=== PATIENT | male | born 1960 | race Caucasian/White ===

== ENCOUNTER → 2020-08-05 10:40 | Outpatient (BNVA) | payer OTHER, SELFPAY | PROVIDERS: PCP Family Medicine; Visit Provider Internal Medicine | DX: I48.19 Other persistent atrial fibrillation (principal); Z51.81 Encounter for therapeutic drug level monitoring; Z79.01 Long term (current) use of anticoagulants | CPT/HCPCS: Q3014 ==

== ENCOUNTER → 2020-09-02 13:48 | Outpatient (BNVA) | payer OTHER, SELFPAY | PROVIDERS: PCP Family Medicine; Visit Provider Internal Medicine | DX: I48.19 Other persistent atrial fibrillation (principal); Z51.81 Encounter for therapeutic drug level monitoring; Z79.01 Long term (current) use of anticoagulants | CPT/HCPCS: 99211 ==

== ENCOUNTER → 2020-09-16 08:38 | Outpatient (BNVA) | payer OTHER, SELFPAY | PROVIDERS: Visit Provider Nurse Practitioner | DX: Z76.89 Persons encountering health services in other specified circumstances (principal) ==

== ENCOUNTER 2020-09-18 13:22 | Outpatient (REF) | payer OTHER, SELFPAY ==
[2020-09-21 15:07] LABS: Gliadin Deamidated IgA Ab 2 Units; Gliadin Deamidated IgG Ab 2 Units
== END 2020-09-18 13:23 | disposition home or self-care (01) ==
LOC: HO.LAB 13:22
PROVIDERS: PCP Family Medicine; Visit Provider Nurse Practitioner
DX: R19.7 Diarrhea, unspecified (principal)
CPT/HCPCS: 36415; 83516; 86140

== ENCOUNTER 2020-09-19 10:51 | Outpatient (REF) | payer OTHER, SELFPAY ==
[2020-09-19 12:42] LABS: Leukocytes Stool Qualitative NEGATIVE (NEGATIVE)
[2020-09-19 13:54] LABS: CDIFF Ag Negative (Negative); CDIFF Internal ctrl Dots and bkg OK (V); CDiff Toxin Negative (Negative)
== END 2020-09-19 10:52 | disposition home or self-care (01) ==
LOC: HO.LNP 10:51
PROVIDERS: Visit Provider Nurse Practitioner
DX: R19.7 Diarrhea, unspecified (principal)
CPT/HCPCS: 87045; 87046; 87324; 87449; 89055

== ENCOUNTER → 2020-09-30 08:35 | Outpatient (BNVA) | payer OTHER, SELFPAY | PROVIDERS: PCP Family Medicine; Visit Provider Internal Medicine | DX: Z76.89 Persons encountering health services in other specified circumstances (principal) ==

== ENCOUNTER → 2020-10-07 08:42 | Outpatient (BNVA) | payer OTHER, SELFPAY | PROVIDERS: PCP Family Medicine; Visit Provider Nurse Practitioner | DX: Z76.89 Persons encountering health services in other specified circumstances (principal) ==

== ENCOUNTER → 2020-10-15 08:05 | Outpatient (BNVA) | payer OTHER, SELFPAY | PROVIDERS: PCP Family Medicine; Visit Provider Internal Medicine | DX: Z76.89 Persons encountering health services in other specified circumstances (principal) ==

== ENCOUNTER 2020-10-20 09:25 | Outpatient (REF) | payer OTHER, SELFPAY ==
[2020-10-20 11:24] LABS: Creatinine Urine 254.44 mg/dL; Microalbum/Creatinine Ratio Ur 4.3 ug/mg cr
== END 2020-10-20 09:26 | disposition home or self-care (01) ==
LOC: HO.WFDLNP 09:25
PROVIDERS: Visit Provider Family Medicine
DX: I10 Essential (primary) hypertension (principal)
CPT/HCPCS: 82043

== ENCOUNTER 2020-10-20 09:40 | Outpatient (REF) | payer OTHER, SELFPAY ==
[2020-10-20 10:27] LABS: Basophils Absolute Auto 0.1 X10*3/uL (0.0-0.2); Basophils Percent Auto 0.9 % (0-2); Eosinophils Absolute Auto 0.4 X10*3/uL (0.0-0.4); Eosinophils Percent Auto 5.5 % (0-4); Imm Gran Abs Auto 0.01 X10*3/uL (0.00-0.03); Imm Gran Pct Auto 0.1 % (0.0-0.4); Lymphocytes Absolute Auto 1.7 X10*3/uL (1.2-4.9); Lymphocytes Percent Auto 23.1 % (20-40); MANUAL DIFF FLAG NO; Mean Corpuscular HGB Conc 31.8 g/dl (31.0-36.0); Mean Corpuscular Hemoglobin 30.6 pg (27.0-33.0); Mean Corpuscular Volume 96.1 fL (80-98); Mean Platelet Volume 9.5 fL (9.4-12.4); Monocytes Absolute Auto 0.7 X10*3/uL (0.1-1.2); Monocytes Percent Auto 8.9 % (2-11); Neutrophils Absolute Auto 4.6 X10*3/uL (2.0-8.3); Neutrophils Percent Auto 61.5 % (45-73); Platelet Count 239 X10*3/uL (160-400); Red Blood Count 4.58 X10*6/uL (4.60-5.80); Red Cell Distribution Width 12.9 % (11.0-16.0); White Blood Count 7.4 X10*3/uL (4.8-10.8)
[2020-10-20 11:09] LABS: Alanine Aminotransferase 26 U/L (0-40); Albumin Level 4.3 g/dL (3.5-5.0); Alkaline Phosphatase 64 U/L (39-117); Anion Gap 12 (12-20); Aspartate Amino Transferase 23 U/L (5-37); Bilirubin Total 0.3 mg/dL (0.0-1.0); Blood Urea Nitrogen 34 mg/dL (9-16); Calcium 9.3 mg/dL (8.4-10.2); Carbon Dioxide 27 mmol/L (22-29); Chloride 103 mmol/L (96-108); Cholesterol 157 mg/dL; Estimated Glomerular Filt Rate > 60; Glucose Fasting 99 mg/dL (60-99); HDL Cholesterol 46 mg/dL; LDL Cholesterol Calculated 89 mg/dl; Sodium 137 mmol/L (135-145); Total Protein 7.4 g/dL (6.5-8.0); Triglycerides 112 mg/dL
[2020-10-20 11:16] LABS: Estimated Average Glucose 114 mg/dL; Hemoglobin A1c % 5.6 %
[2020-10-20 11:31] LABS: Prostate Specific Antigen Scr 3.79 ng/mL (<0.05-4.0); TSH reflex Free T4 1.81 mIU/mL (0.32-4.0)
== END 2020-10-20 09:41 | disposition home or self-care (01) ==
LOC: HO.WFDLDS 09:40
PROVIDERS: Visit Provider Family Medicine
DX: Z00.00 Encounter for general adult medical examination without abnormal findings (principal); I10 Essential (primary) hypertension; R73.03 Prediabetes; D64.9 Anemia, unspecified; E78.00 Pure hypercholesterolemia, unspecified; Z12.5 Encounter for screening for malignant neoplasm of prostate
CPT/HCPCS: 36415; 80053; 80061; 82043; 83036; 84153; 84443; 85025

== ENCOUNTER → 2020-10-28 13:37 | Outpatient (BNVA) | payer OTHER, SELFPAY | PROVIDERS: PCP Family Medicine; Visit Provider Internal Medicine | DX: I48.19 Other persistent atrial fibrillation (principal); Z79.01 Long term (current) use of anticoagulants; Z51.81 Encounter for therapeutic drug level monitoring | CPT/HCPCS: Q3014 ==

== ENCOUNTER → 2020-11-11 12:44 | Outpatient (BNVA) | payer OTHER, SELFPAY | PROVIDERS: PCP Family Medicine; Visit Provider Internal Medicine | DX: I48.19 Other persistent atrial fibrillation (principal); Z51.81 Encounter for therapeutic drug level monitoring; Z79.01 Long term (current) use of anticoagulants | CPT/HCPCS: Q3014 ==

== ENCOUNTER → 2020-11-26 08:50 | Outpatient (BNVA) | payer OTHER, SELFPAY | PROVIDERS: PCP Family Medicine; Visit Provider Internal Medicine | DX: I48.19 Other persistent atrial fibrillation (principal); Z51.81 Encounter for therapeutic drug level monitoring; Z79.01 Long term (current) use of anticoagulants | CPT/HCPCS: Q3014 ==

== ENCOUNTER → 2020-12-09 14:39 | Outpatient (BNVA) | payer OTHER, SELFPAY | PROVIDERS: PCP Family Medicine; Visit Provider Internal Medicine | DX: I48.19 Other persistent atrial fibrillation (principal); Z51.81 Encounter for therapeutic drug level monitoring; Z79.01 Long term (current) use of anticoagulants | CPT/HCPCS: Q3014 ==

== ENCOUNTER → 2020-12-23 08:05 | Outpatient (BNVA) | payer OTHER, SELFPAY | PROVIDERS: PCP Family Medicine; Visit Provider Internal Medicine | DX: I48.19 Other persistent atrial fibrillation (principal); Z51.81 Encounter for therapeutic drug level monitoring; Z79.01 Long term (current) use of anticoagulants | CPT/HCPCS: 85610; 99211 ==

== ENCOUNTER → 2021-01-06 11:28 | Outpatient (BNVA) | payer OTHER, SELFPAY | PROVIDERS: PCP Family Medicine; Visit Provider Internal Medicine ==

== ENCOUNTER → 2021-01-20 10:42 | Outpatient (BNVA) | payer OTHER, SELFPAY | PROVIDERS: PCP Family Medicine; Visit Provider Internal Medicine | DX: Z79.01 Long term (current) use of anticoagulants (principal) ==

== ENCOUNTER → 2021-01-25 08:21 | Outpatient (BNVA) | payer OTHER, SELFPAY | PROVIDERS: PCP Family Medicine; Visit Provider Nurse Practitioner ==

== ENCOUNTER → 2021-02-04 09:59 | Outpatient (BNVA) | payer OTHER, SELFPAY | PROVIDERS: PCP Family Medicine; Visit Provider Internal Medicine | DX: I48.19 Other persistent atrial fibrillation (principal); Z79.01 Long term (current) use of anticoagulants; Z51.81 Encounter for therapeutic drug level monitoring | CPT/HCPCS: 99211 ==

== ENCOUNTER → 2021-02-15 13:49 | Outpatient (BNVA) | payer OTHER, SELFPAY | PROVIDERS: PCP Family Medicine; Visit Provider Nurse Practitioner ==

== ENCOUNTER → 2021-02-17 12:32 | Outpatient (BNVA) | payer OTHER, SELFPAY | PROVIDERS: PCP Family Medicine; Visit Provider Internal Medicine ==

== ENCOUNTER → 2021-03-04 10:54 | Outpatient (BNVA) | payer OTHER, SELFPAY | PROVIDERS: PCP Family Medicine; Visit Provider Internal Medicine ==

== ENCOUNTER → 2021-03-17 11:53 | Outpatient (BNVA) | payer OTHER, SELFPAY | PROVIDERS: PCP Family Medicine; Visit Provider Internal Medicine | DX: Z13.89 Encounter for screening for other disorder (principal) | CPT/HCPCS: Q3014 ==

== ENCOUNTER → 2021-03-25 10:47 | Outpatient (BNVA) | payer OTHER, SELFPAY | PROVIDERS: PCP Family Medicine; Visit Provider Internal Medicine | DX: I48.19 Other persistent atrial fibrillation (principal) | CPT/HCPCS: Q3014 ==

== ENCOUNTER → 2021-04-01 11:27 | Outpatient (BNVA) | payer OTHER, SELFPAY | PROVIDERS: PCP Family Medicine; Visit Provider Internal Medicine ==

== ENCOUNTER → 2021-04-15 12:00 | Outpatient (BNVA) | payer OTHER, SELFPAY | PROVIDERS: PCP Family Medicine; Visit Provider Internal Medicine ==

== ENCOUNTER 2021-04-20 09:06 | Outpatient (REF) | payer OTHER, SELFPAY ==
[2021-04-20 11:47] LABS: Prostate Specific Antigen Scr 3.51 ng/mL (<0.05-4.0)
== END 2021-04-20 09:07 | disposition home or self-care (01) ==
LOC: HO.WFDLDS 09:06
PROVIDERS: Visit Provider Family Medicine
DX: Z12.5 Encounter for screening for malignant neoplasm of prostate (principal)
CPT/HCPCS: 36415; 84153

== ENCOUNTER → 2021-05-12 13:56 | Outpatient (BNVA) | payer OTHER, SELFPAY | PROVIDERS: PCP Family Medicine; Visit Provider Internal Medicine ==

== ENCOUNTER → 2021-05-20 11:08 | Outpatient (BNVA) | payer OTHER, SELFPAY | PROVIDERS: Visit Provider Nurse Practitioner ==

== ENCOUNTER → 2021-05-27 12:02 | Outpatient (BNVA) | payer OTHER, SELFPAY | PROVIDERS: PCP Family Medicine; Visit Provider Internal Medicine | DX: I48.19 Other persistent atrial fibrillation (principal); Z79.01 Long term (current) use of anticoagulants; Z51.81 Encounter for therapeutic drug level monitoring | CPT/HCPCS: Q3014 ==

== ENCOUNTER → 2021-06-09 10:34 | Outpatient (BNVA) | payer OTHER, SELFPAY | PROVIDERS: PCP Family Medicine; Visit Provider Internal Medicine | DX: I48.19 Other persistent atrial fibrillation (principal) | CPT/HCPCS: Q3014 ==

== ENCOUNTER → 2021-06-17 10:17 | Outpatient (BNVA) | payer OTHER, SELFPAY | PROVIDERS: PCP Family Medicine; Visit Provider Internal Medicine ==

== ENCOUNTER → 2021-07-07 11:38 | Outpatient (BNVA) | payer OTHER, SELFPAY | PROVIDERS: PCP Family Medicine; Visit Provider Internal Medicine | DX: Z13.89 Encounter for screening for other disorder (principal) | CPT/HCPCS: Q3014 ==

== ENCOUNTER → 2021-07-14 17:03 | Outpatient (BNVA) | payer OTHER, SELFPAY | PROVIDERS: PCP Family Medicine; Visit Provider Internal Medicine | DX: I48.19 Other persistent atrial fibrillation (principal) | CPT/HCPCS: Q3014 ==

== ENCOUNTER → 2021-07-16 09:11 | Outpatient (BNVA) | payer OTHER, SELFPAY | PROVIDERS: PCP Family Medicine; Visit Provider Nurse Practitioner ==

== ENCOUNTER → 2021-07-22 12:00 | Outpatient (BNVA) | payer OTHER, SELFPAY | PROVIDERS: PCP Family Medicine; Visit Provider Internal Medicine ==

== ENCOUNTER → 2021-08-11 11:36 | Outpatient (BNVA) | payer OTHER, SELFPAY | PROVIDERS: PCP Family Medicine; Visit Provider Internal Medicine ==

== ENCOUNTER → 2021-08-26 10:59 | Outpatient (BNVA) | payer OTHER, SELFPAY | PROVIDERS: PCP Family Medicine; Visit Provider Internal Medicine ==

== ENCOUNTER → 2021-09-24 09:44 | Outpatient (BNVA) | payer OTHER, SELFPAY | PROVIDERS: PCP Family Medicine; Visit Provider Internal Medicine ==

== ENCOUNTER → 2021-10-07 13:40 | Outpatient (BNVA) | payer OTHER, SELFPAY | PROVIDERS: PCP Family Medicine; Visit Provider Internal Medicine | DX: I48.19 Other persistent atrial fibrillation (principal) | CPT/HCPCS: Q3014 ==

== ENCOUNTER → 2021-10-26 13:33 | Outpatient (BNVA) | payer OTHER, SELFPAY | PROVIDERS: PCP Family Medicine; Visit Provider Internal Medicine | DX: I48.19 Other persistent atrial fibrillation (principal); Z51.81 Encounter for therapeutic drug level monitoring; Z79.01 Long term (current) use of anticoagulants | CPT/HCPCS: Q3014 ==

== ENCOUNTER → 2021-11-03 11:01 | Outpatient (BNVA) | payer OTHER, SELFPAY | PROVIDERS: PCP Family Medicine; Visit Provider Internal Medicine | DX: I48.19 Other persistent atrial fibrillation (principal); Z51.81 Encounter for therapeutic drug level monitoring; Z79.01 Long term (current) use of anticoagulants | CPT/HCPCS: Q3014 ==

== ENCOUNTER → 2021-11-09 07:17 | Outpatient (BNVA) | payer OTHER, SELFPAY | PROVIDERS: PCP Family Medicine; Referring Provider Family Medicine; Visit Provider Nurse Practitioner ==

== ENCOUNTER → 2021-11-10 14:24 | Outpatient (BNVA) | payer OTHER, SELFPAY | PROVIDERS: PCP Family Medicine; Visit Provider Internal Medicine ==

== ENCOUNTER → 2021-11-25 13:44 | Outpatient (BNVA) | payer OTHER, SELFPAY | PROVIDERS: PCP Family Medicine; Visit Provider Internal Medicine ==

== ENCOUNTER → 2021-12-08 08:41 | Outpatient (BNVA) | payer OTHER, SELFPAY | PROVIDERS: PCP Family Medicine; Visit Provider Internal Medicine ==

== ENCOUNTER → 2021-12-21 08:28 | Outpatient (BNVA) | payer OTHER, SELFPAY | PROVIDERS: PCP Family Medicine; Visit Provider Nurse Practitioner ==

== ENCOUNTER → 2021-12-29 09:40 | Outpatient (BNVA) | payer OTHER, SELFPAY | PROVIDERS: PCP Family Medicine; Visit Provider Internal Medicine | DX: Z13.89 Encounter for screening for other disorder (principal) ==

== ENCOUNTER → 2022-01-13 11:50 | Outpatient (BNVA) | payer OTHER, SELFPAY | PROVIDERS: PCP Family Medicine; Visit Provider Internal Medicine | DX: Z13.89 Encounter for screening for other disorder (principal) ==

== ENCOUNTER → 2022-01-27 08:53 | Outpatient (BNVA) | payer OTHER, SELFPAY | PROVIDERS: PCP Family Medicine; Visit Provider Internal Medicine | DX: I48.19 Other persistent atrial fibrillation (principal); Z79.01 Long term (current) use of anticoagulants; Z51.81 Encounter for therapeutic drug level monitoring | CPT/HCPCS: 99211 ==

== ENCOUNTER → 2022-02-09 13:33 | Outpatient (BNVA) | payer OTHER, SELFPAY | PROVIDERS: PCP Family Medicine; Visit Provider Internal Medicine | DX: Z13.89 Encounter for screening for other disorder (principal) ==

== ENCOUNTER → 2022-02-24 14:14 | Outpatient (BNVA) | payer OTHER, SELFPAY | PROVIDERS: PCP Family Medicine; Visit Provider Internal Medicine | DX: Z13.89 Encounter for screening for other disorder (principal) ==

== ENCOUNTER → 2022-03-09 13:11 | Outpatient (BNVA) | payer OTHER, SELFPAY | PROVIDERS: PCP Family Medicine; Visit Provider Internal Medicine | DX: Z13.89 Encounter for screening for other disorder (principal) ==

== ENCOUNTER → 2022-03-24 08:44 | Outpatient (BNVA) | payer OTHER, SELFPAY | PROVIDERS: PCP Family Medicine; Visit Provider Internal Medicine | DX: I48.19 Other persistent atrial fibrillation (principal); Z79.01 Long term (current) use of anticoagulants; Z51.81 Encounter for therapeutic drug level monitoring | CPT/HCPCS: Q3014 ==

== ENCOUNTER → 2022-04-07 10:21 | Outpatient (BNVA) | payer OTHER, SELFPAY | PROVIDERS: PCP Family Medicine; Visit Provider Internal Medicine | DX: I48.19 Other persistent atrial fibrillation (principal); Z51.81 Encounter for therapeutic drug level monitoring; Z79.01 Long term (current) use of anticoagulants | CPT/HCPCS: Q3014 ==

== ENCOUNTER → 2022-05-05 12:51 | Outpatient (BNVA) | payer OTHER, SELFPAY | PROVIDERS: PCP Family Medicine; Visit Provider Internal Medicine | DX: I48.19 Other persistent atrial fibrillation (principal); Z79.01 Long term (current) use of anticoagulants; Z51.81 Encounter for therapeutic drug level monitoring | CPT/HCPCS: Q3014 ==

== ENCOUNTER → 2022-05-18 08:34 | Outpatient (BNVA) | payer OTHER, SELFPAY | PROVIDERS: PCP Family Medicine; Visit Provider Internal Medicine | DX: I48.19 Other persistent atrial fibrillation (principal); Z51.81 Encounter for therapeutic drug level monitoring; Z79.01 Long term (current) use of anticoagulants | CPT/HCPCS: 85610; 99211 ==

== ENCOUNTER → 2022-06-02 11:19 | Outpatient (BNVA) | payer OTHER, SELFPAY | PROVIDERS: PCP Family Medicine; Visit Provider Internal Medicine | DX: I48.19 Other persistent atrial fibrillation (principal); Z51.81 Encounter for therapeutic drug level monitoring; Z79.01 Long term (current) use of anticoagulants | CPT/HCPCS: Q3014 ==

== ENCOUNTER → 2022-06-22 15:24 | Outpatient (BNVA) | payer OTHER, SELFPAY | PROVIDERS: PCP Family Medicine; Visit Provider Internal Medicine | DX: I48.19 Other persistent atrial fibrillation (principal); Z51.81 Encounter for therapeutic drug level monitoring; Z79.01 Long term (current) use of anticoagulants | CPT/HCPCS: Q3014 ==

== ENCOUNTER → 2022-07-29 12:25 | Outpatient (BNVA) | payer OTHER, SELFPAY | PROVIDERS: PCP Family Medicine; Visit Provider Internal Medicine | DX: I48.19 Other persistent atrial fibrillation (principal); Z79.01 Long term (current) use of anticoagulants; Z51.81 Encounter for therapeutic drug level monitoring | CPT/HCPCS: Q3014 ==

== ENCOUNTER → 2022-08-10 10:13 | Outpatient (BNVA) | payer OTHER, SELFPAY | PROVIDERS: PCP Family Medicine; Visit Provider Internal Medicine | DX: I48.19 Other persistent atrial fibrillation (principal); Z51.81 Encounter for therapeutic drug level monitoring; Z79.01 Long term (current) use of anticoagulants | CPT/HCPCS: Q3014 ==

== ENCOUNTER 2022-09-29 09:27 | Outpatient (REF) | payer OTHER, SELFPAY ==
[2022-09-29 11:18] LABS: MANUAL DIFF FLAG NO
[2022-09-29 11:39] LABS: Appearance Urine Clear; Color Urine Yellow; Glucose Urine UA >=1000 mg/dL (Negative); Leukocyte Esterase Urine Negative (Negative); Nitrite Urine Negative (Negative); PH 5.5 (5.0-9.0); UMIC TRIGGER UA YES; Urine Blood Negative (Negative); Urine Ketones Negative (Negative); Urine Protein Negative (Neg-Trace)
[2022-09-29 11:41] LABS: Basophils Absolute Auto 0.1 X10*3/uL (0.0-0.2); Eosinophils Absolute Auto 0.3 X10*3/uL (0.0-0.4); Eosinophils Percent Auto 6.6 % (0-4); Hematocrit 42.2 % (42.0-52.0); Hemoglobin 13.2 g/dl (14.0-18.0); Imm Gran Abs Auto 0.01 X10*3/uL (0.00-0.03); Imm Gran Pct Auto 0.2 % (0.0-0.4); Lymphocytes Absolute Auto 1.5 X10*3/uL (1.2-4.9); Mean Corpuscular HGB Conc 31.3 g/dl (31.0-36.0); Mean Corpuscular Hemoglobin 29.7 pg (27.0-33.0); Mean Platelet Volume 10.2 fL (9.4-12.4); Monocytes Absolute Auto 0.6 X10*3/uL (0.1-1.2); Monocytes Percent Auto 11.3 % (2-11); Neutrophils Absolute Auto 2.6 x10*3/uL (2.0-8.3); Neutrophils Percent Auto 50.9 % (45-73); Platelet Count 254 X10*3/uL (160-400); Red Blood Count 4.44 X10*6/uL (4.60-5.80); Red Cell Distribution Width 13.3 % (11.0-16.0); White Blood Count 5.1 X10*3/uL (4.8-10.8)
[2022-09-29 11:47] LABS: Bacteria Urine None Seen (None Seen); Hyaline Casts Urine 0-2 /LPF (0-2); RBC Urine 0-2 /HPF (0-2); Squamous Epithelial Cell Urine 0-2 /HPF (0-2); WBC Urine 0-5 /HPF (0-5)
[2022-09-29 12:11] LABS: Creatinine Urine 83.56 mg/dL; Microalbumin Urine < 5.0 mg/L
[2022-09-29 12:13] LABS: Prostate Specific Antigen Scr 3.29 ng/mL (<0.05-4.0)
[2022-09-29 13:33] LABS: Alanine Aminotransferase 16 U/L (0-40); Alkaline Phosphatase 72 U/L (39-117); Anion Gap 10 (12-20); Aspartate Amino Transferase 19 U/L (5-37); Bilirubin Total 0.5 mg/dL (0.0-1.0); Blood Urea Nitrogen 23 mg/dL (9-16); Calcium 9.3 mg/dL (8.4-10.2); Carbon Dioxide 27 mmol/L (22-29); Chloride 106 mmol/L (96-108); Cholesterol 135 mg/dL; Estimated Glomerular Filt Rate > 60; Glucose Random 92 mg/dL (60-115); HDL Cholesterol 34 mg/dL; LDL Cholesterol Calculated 80 mg/dl; Potassium 5.1 mmol/L (3.3-5.1); Sodium 138 mmol/L (135-145); TSH reflex Free T4 2.21 uIU/mL (0.32-4.0); Triglycerides 107 mg/dL
[2022-10-01 09:43] LABS: LDL Cholesterol Direct 79 mg/dL (<100)
== END 2022-09-29 09:28 | disposition home or self-care (01) ==
LOC: HO.WFDLDS 09:27
PROVIDERS: Visit Provider Family Medicine
DX: Z00.00 Encounter for general adult medical examination without abnormal findings (principal); Z12.5 Encounter for screening for malignant neoplasm of prostate; I10 Essential (primary) hypertension; E78.00 Pure hypercholesterolemia, unspecified
CPT/HCPCS: 36415; 80053; 80061; 81001; 82043; 83721; 84153; 84443; 85025

== ENCOUNTER → 2022-10-05 14:43 | Outpatient (BNVA) | payer OTHER, SELFPAY | PROVIDERS: PCP Family Medicine; Visit Provider Internal Medicine | DX: Z79.01 Long term (current) use of anticoagulants (principal) ==

== ENCOUNTER → 2022-10-19 14:42 | Outpatient (BNVA) | payer OTHER, SELFPAY | PROVIDERS: PCP Family Medicine; Visit Provider Internal Medicine | DX: Z79.01 Long term (current) use of anticoagulants (principal) ==

== ENCOUNTER → 2022-11-02 12:35 | Outpatient (BNVA) | payer OTHER, SELFPAY | PROVIDERS: PCP Family Medicine; Visit Provider Internal Medicine | DX: Z79.01 Long term (current) use of anticoagulants (principal) ==

== ENCOUNTER → 2022-11-24 08:35 | Outpatient (BNVA) | payer OTHER, SELFPAY | PROVIDERS: PCP Family Medicine; Visit Provider Internal Medicine | DX: Z79.01 Long term (current) use of anticoagulants (principal) ==

== ENCOUNTER → 2022-12-07 15:23 | Outpatient (BNVA) | payer OTHER, SELFPAY | PROVIDERS: PCP Family Medicine; Visit Provider Internal Medicine | DX: Z79.01 Long term (current) use of anticoagulants (principal) ==

== ENCOUNTER → 2022-12-21 09:40 | Outpatient (BNVA) | payer OTHER, SELFPAY | PROVIDERS: PCP Family Medicine; Visit Provider Internal Medicine | DX: Z13.89 Encounter for screening for other disorder (principal) ==

== ENCOUNTER → 2023-01-04 08:17 | Outpatient (BNVA) | payer OTHER, SELFPAY | PROVIDERS: PCP Family Medicine; Visit Provider Nurse Practitioner | DX: Z13.89 Encounter for screening for other disorder (principal) ==

== ENCOUNTER → 2023-01-18 12:58 | Outpatient (BNVA) | payer OTHER, SELFPAY | PROVIDERS: PCP Family Medicine; Visit Provider Internal Medicine | DX: Z79.01 Long term (current) use of anticoagulants (principal) ==

== ENCOUNTER → 2023-02-01 09:26 | Outpatient (BNVA) | payer OTHER, SELFPAY | PROVIDERS: PCP Family Medicine; Visit Provider Internal Medicine | DX: Z79.01 Long term (current) use of anticoagulants (principal) ==

== ENCOUNTER → 2023-02-16 11:28 | Outpatient (BNVA) | payer OTHER, SELFPAY | PROVIDERS: PCP Family Medicine; Visit Provider Internal Medicine | DX: Z79.01 Long term (current) use of anticoagulants (principal) ==

== ENCOUNTER → 2023-03-02 08:38 | Outpatient (BNVA) | payer OTHER, SELFPAY | PROVIDERS: PCP Family Medicine; Visit Provider Internal Medicine | DX: Z79.01 Long term (current) use of anticoagulants (principal) ==

== ENCOUNTER → 2023-03-16 11:27 | Outpatient (BNVA) | payer OTHER, SELFPAY | PROVIDERS: PCP Family Medicine; Visit Provider Internal Medicine | DX: Z79.01 Long term (current) use of anticoagulants (principal) ==

== ENCOUNTER → 2023-03-30 09:39 | Outpatient (BNVA) | payer OTHER, SELFPAY | PROVIDERS: PCP Family Medicine; Visit Provider Internal Medicine | DX: Z79.01 Long term (current) use of anticoagulants (principal) ==

== ENCOUNTER → 2023-04-13 09:09 | Outpatient (BNVA) | payer OTHER, SELFPAY | PROVIDERS: PCP Family Medicine; Visit Provider Internal Medicine ==

== ENCOUNTER → 2023-04-27 10:24 | Outpatient (BNVA) | payer OTHER, SELFPAY | PROVIDERS: PCP Family Medicine; Visit Provider Internal Medicine ==

== ENCOUNTER → 2023-05-11 10:20 | Outpatient (BNVA) | payer OTHER, SELFPAY | PROVIDERS: PCP Family Medicine; Visit Provider Internal Medicine ==

== ENCOUNTER → 2023-05-26 10:41 | Outpatient (BNVA) | payer OTHER, SELFPAY | PROVIDERS: PCP Family Medicine; Visit Provider Internal Medicine ==

== ENCOUNTER → 2023-06-08 10:32 | Outpatient (BNVA) | payer OTHER, SELFPAY | PROVIDERS: PCP Family Medicine; Visit Provider Internal Medicine ==

== ENCOUNTER → 2023-06-29 11:09 | Outpatient (BNVA) | payer OTHER, SELFPAY | PROVIDERS: PCP Family Medicine; Visit Provider Internal Medicine ==

== ENCOUNTER 2023-07-06 07:59 | Outpatient (REF) | payer OTHER, SELFPAY | END 2023-07-06 08:00 | disposition home or self-care (01) | LOC: HO.LAB 07:59 | PROVIDERS: PCP Family Medicine; Visit Provider Nurse Practitioner | DX: R19.7 Diarrhea, unspecified (principal); K58.0 Irritable bowel syndrome with diarrhea; Z91.09 Other allergy status, other than to drugs and biological substances | CPT/HCPCS: 36415; 86003 ==

== ENCOUNTER 2023-07-06 07:59 | Outpatient (AMB) | payer OTHER, SELFPAY ==
[2023-07-06 08:05] VITALS: BP 93/56; PULSE 76; BMI 28.4
--- NOTE | 2023-07-06 08:05 | MHC.OFFVIS ---
Intake Vital Signs 07/06/23 08:05 Height 5 ft 8 in Weight 187 lb BMI 28.4 BP 93/56 L Blood Pressure Location Lt brachial Position Sitting Pulse 76 Intake Visit Reasons: 6 month fu Intake Note: Patient follow up for IBS with diarrhea. Patient denies any GI issues or concern. Ticket Maker Required: No Accompanied by: Self / Same As Patient Allergies No Known Allergies Allergy (Verified 07/06/23 08:05) HPI 6 month fu HPI Details Assessment & Plan (1) Irritable bowel syndrome with diarrhea: Comment: 2-colonoscopies and negative stool studies patient has failed dicyclomine cholestyramine Carafate and Imodium Code(s): K58.0 - Irritable bowel syndrome with diarrhea Plan: In general he is better controlled w/o any loose stools on his Viberzi 100 mg twice a day, but at times he has multiple daily BM's after eating not like when I used to go once in the morning. This is still prefer a bbl to when he had fecal urgency and multiple loose stools. He understands that these things are affected by how much water he drinks (he recently was ill and had some constipation which promote Education about skipping doses of Viberzi under the circumstances), will kind of food he eats such as spicy food, and this could even be impacted by things like anxiety through the neural hormonal interactions of the got with the rest of the body. For now, he is stable and taking 1 bentyl bid only. We discuss that we could consider RAST testing or pancreatic elastase, or adding a fiber supplement. He is aware that we can do these at any point but for now he opts for adding a fiber supplement such as Benefiber or Citrucel to see if he can even out his bowel movements better. I also point out that keeping a food diary can go long wait towards discovering what foods may cause his postprandial urgency. He likes Pintus!!! For now he is agreeable to six-month follow-up I will contact me sooner if he feels the need. Medications: Refilled eluxadoline (Viber zi) must admini ster with a meal/f ood 100 mg PO BID 180 tabs 3RF 90 days K58.0 - Irritable bowel syndrome wit h diarrhea TODAY'S VISIT Despite taking Viberzi bid faithfully he still has very frequent breakthrough diarrhea, very watery with near fecal incontinence that is very life limiting. He admits that he thought he was starting to get better before which is why he doing complain but now he sees that this is untenable and we need to address the situation further. Will stop bentyl and add creon 2 tabs bid and get RAST panel - as this is the only possible missing diagnostic. A prior what colonoscopy was normal visually in 2010 without polyps although they did not take biopsies, his last was in [address] Hou and a small polyp was removed in biopsies were obtained that were negative and he had a very small tubular adenoma. He denies taking NSAID/aspirin except for occasionally before playing golf but the prior biopsy seem to exclude collagenous/microscopic colitis. He had negative stool studies, was negative for celiac by blood testing, has had negative CRP is in the past but of course he could be a CRP non responder and perhaps we should consider a fecal calprotectin to totally exclude inflammatory bowel disease. . Return office visit in 2 weeks which we can reschedule if he has trouble obtaining the Creon due to insurance coverage. [facility] Surgical History Status post biventricular cardiac pacemaker insertion H/O cardiac radiofrequency ablation Hx of colonoscopy Family History Father Cancer Mother Heart problem Social History Household Members: None Housing: House Alcohol intake: current Alcohol intake frequency: a few times a month Patient Tobacco Use Status: Never used Tobacco e-Cigarette/Vaping Use: Never Used Second Hand Smoke Exposure: No service: No Current occupational status: employed Current occupation: HVAC Current occupational exposures/hazards: No Cognitive needs: No Hearing needs: No Vision needs: No Review of Systems Const Denies fatigue, Denies fever(s), Denies night sweats, Denies poor appetite and Denies weight loss ENT Reports Normal hearing present, Denies dental pain, Denies dysphagia, Denies hearing loss, Denies mouth pain, Denies odynophagia, Denies throat swelling, Denies tongue swelling and Reports other (Dentition adequate) Card Reports no additional complaints Resp Reports no additional complaints GI Denies abdominal pain, Denies melena, Denies bloating, Denies hematochezia, Denies constipation, Reports GI cramping, Denies dysphagia, Denies excessive flatus, Denies early satiety, Denies heartburn, Reports diarrhea, Denies nausea, Denies odynophagia, Denies vomiting and Denies hematemesis Skin/Breast Denies pruritus, Denies lesions, Denies rash and Denies jaundice Neuro Reports Normal hearing present and Denies Abnormal speech present Endo Denies fatigue Aller/Immun Denies throat swelling and Denies tongue swelling Physical Exam Vital Signs: Last Vital Signs Pulse 76 07/06/23 08:05 BP 93/56 L 07/06/23 08:05 BMI result Body Mass Index 28.4 Const General: cooperative, no acute distress, well developed and well groomed Nutritional Appearance: average body habitus and well nourished Orientation/consciousness: oriented to person, oriented to place and oriented to time Limitations: No language barrier HEENT Head: Yes normocephalic and Yes atraumatic Eyes General: appearance normal, both eyes and all related structures Pupils: Equal, round and reactive pupils present Neck Neck: Yes normal visual inspection and Yes no lymphadenopathy Thyroid: Thyroid normal Resp Effort & Inspection: normal respiratory effort and able to speak in complete sentences Auscultation: clear to auscultation bilaterally Cardio Rate: regular rate Rhythm: regular rhythm Heart sounds: Normal, physiologic split S2 sound present Peripheral pulses: radial pulses present and posterior tibial pulses present GI Inspection: No distended and No Abdominal panniculus present Palpation (GI): Soft to palpation, nontender, no guarding, not rigid and No hepatosplenomegaly present Percussion: Yes normal to percussion Auscultation: normal bowel sounds Rectal Exam - Male: Yes deferred Skin General skin exam: no rashes or lesions noted, turgor normal, skin not dry, no jaundice, No spider nevi and no striae Rashes: no rashes Nails: normal Neuro General: oriented to person, oriented to place and oriented to time Cranial nerves: Yes Equal, round and reactive pupils present and Yes Normal hearing present Speech: No Abnormal speech present Extrem General: Yes normal to inspection, No clubbing, No cyanosis and No edema Psych Appearance: grossly normal and well kempt Mental Status: mental status grossly normal Speech and movement: Normal speech and movement present Affect: normal affect Attitude: cooperative Thought process: Normal thought process present and not confabulating Thought content: Normal thought content present Insight: Fair insight present (Psych) Judgement: Fair judgement present (Psych) Assessment & Plan Assessment & Plan (1) Diarrhea: Code(s): R19.7 - Diarrhea, unspecified Plan: Despite taking Viberzi bid faithfully he still has very frequent breakthrough diarrhea, very watery with near fecal incontinence that is very life limiting. He admits that he thought he was starting to get better before which is why he doing complain but now he sees that this is untenable and we need to address the situation further. Will stop bentyl and add creon 2 tabs bid and get RAST panel - as this is the only possible missing diagnostic. A prior what colonoscopy was normal visually in 2010 without polyps although they did not take biopsies, his last was in [address] Hou and a small polyp was removed in biopsies were obtained that were negative and he had a very small tubular adenoma. He denies taking NSAID/aspirin except for occasionally before playing golf but the prior biopsy seem to exclude collagenous/microscopic colitis. He had negative stool studies, was negative for celiac by blood testing, has had negative CRP is in the past but of course he could be a CRP non responder and perhaps we should consider a fecal calprotectin to totally exclude inflammatory bowel disease. . Return office visit in 2 weeks which we can reschedule if he has trouble obtaining the Creon due to insurance coverage. (2) Irritable bowel syndrome with diarrhea: Comment: 2-colonoscopies and negative stool studies patient has failed dicyclomine cholestyramine Carafate and Imodium Code(s): K58.0 - Irritable bowel syndrome with diarrhea Orders: Orders Rast Allergen Today R19.7 - Diarrhea, unspecified Medications: New jrrabw-eezqzuli-lpagsms 24,000-76,000 -120,000 unit (Creon) administer with meals and/or snacks 2 caps PO BID 30 days 120 caps 6RF K58.9 - Irritable bowel syndrome without diarrhea Coding Level of Care Code Est Pt Level 3 (14157) Diagnoses Diarrhea R19.7 Irritable bowel syndrome with diarrhea K58.0
== END 2023-07-06 08:33 | disposition home or self-care (01) ==
PROVIDERS: PCP Family Medicine; Visit Provider Nurse Practitioner
DX: R19.7 Diarrhea, unspecified (principal); K58.0 Irritable bowel syndrome with diarrhea
CPT/HCPCS: 99213

== ENCOUNTER → 2023-07-14 16:41 | Outpatient (BNVA) | payer OTHER, SELFPAY | PROVIDERS: PCP Family Medicine; Visit Provider Internal Medicine ==

== ENCOUNTER → 2023-07-27 15:22 | Outpatient (BNVA) | payer OTHER, SELFPAY | PROVIDERS: PCP Family Medicine; Visit Provider Internal Medicine ==

== ENCOUNTER 2023-08-10 08:39 | Outpatient (AMB) | payer OTHER, SELFPAY ==
[2023-08-10 08:49] LABS: Prothrombin Time Whole Bld POC 35.3 sec (11.1-13.5); ~PT, ~INR - Anti Coag Clinic 2.9 (0.9-1.1)
--- NOTE | 2023-08-10 08:55 | MHC.OFFVISCO ---
Intake Intake Visit Reasons: Anticoagulation Allergies No Known Allergies Allergy (Verified 08/10/23 08:40) Medication List - Last Reconciled 08/10/23 by Neha Anderson RN atorvastatin 40 mg PO BEDTIME 90 days dicyclomine 20 mg PO QID PRN eluxadoline (Viberzi) 100 mg PO BID 90 days empagliflozin (Jardiance) 10 mg PO DAILY 90 days ewznlp-ebbbhyro-qzuhumy 24,000-76,000 -120,000 unit (Creon) 2 caps PO BID 30 days metoprolol succinate ER 150 mg (1.5 x 100 mg) PO DAILY 90 days sacubitril-valsartan 49-51 mg (Entresto) 1 tab PO BID 90 days sertraline 100 mg PO DAILY 90 days spironolactone 25 mg PO DAILY 90 days warfarin 5 mg See Protocol PO DAILY 90 days Nursing Note METER TO METER CORRELATION WITH EXCELLENT POC SKILLS INR: 2.9 in therapeutic range Medications and supplements reviewed No changes in health, diet, medications, or supplements, Denies any signs and symptoms of bleeding or bruising or clotting. Bleeding, bruising, clotting discussed Nutritional guidance given CONT TO EAT A MIX OF FRUITS AND VEGETABLES Dose: 7.5MG X 3 DAYS/ 5MG X 4 DAYS F/U INR: 2 WEEKS Patient verbalizes understanding of instructions given Anti-Coag Initial Assessment Social Hx Patient Tobacco Use Status: Never used Tobacco alcohol intake: current Alcohol intake frequency: a few times a month Coding Level of Care Code Est Patient Level 1 Diagnoses Current use of anticoagulant therapy Z79.01 Assessment & Plan Assessment & Plan (1) Current use of anticoagulant therapy: Code(s): Z79.01 - USP (current) use of anticoagulants Category: Medical
== END 2023-08-10 09:04 | disposition home or self-care (01) ==
LOC: HO.ACS 08:39
PROVIDERS: PCP Family Medicine; Visit Provider Internal Medicine
DX: Z79.01 Long term (current) use of anticoagulants (principal)

== ENCOUNTER → 2023-08-10 08:39 | Outpatient (BNVA) | payer OTHER, SELFPAY | PROVIDERS: PCP Family Medicine; Visit Provider Internal Medicine | DX: I48.19 Other persistent atrial fibrillation (principal); Z51.81 Encounter for therapeutic drug level monitoring; Z79.01 Long term (current) use of anticoagulants | CPT/HCPCS: 85610; 99211 ==

== ENCOUNTER → 2023-08-24 14:11 | Outpatient (BNVA) | payer OTHER, SELFPAY | PROVIDERS: PCP Family Medicine; Visit Provider Internal Medicine ==

== ENCOUNTER → 2023-08-31 12:27 | Outpatient (BNVA) | payer OTHER, SELFPAY | PROVIDERS: PCP Family Medicine; Visit Provider Internal Medicine ==

== ENCOUNTER → 2023-09-14 10:48 | Outpatient (BNVA) | payer OTHER, SELFPAY | PROVIDERS: PCP Family Medicine; Visit Provider Internal Medicine ==

== ENCOUNTER → 2023-09-21 11:13 | Outpatient (BNVA) | payer OTHER, SELFPAY | PROVIDERS: PCP Family Medicine; Visit Provider Internal Medicine ==

== ENCOUNTER → 2023-10-05 12:10 | Outpatient (BNVA) | payer OTHER, SELFPAY | PROVIDERS: PCP Family Medicine; Visit Provider Internal Medicine ==

== ENCOUNTER → 2023-10-13 09:23 | Outpatient (BNVA) | payer OTHER, SELFPAY | PROVIDERS: PCP Family Medicine; Visit Provider Internal Medicine ==

== ENCOUNTER → 2023-10-26 10:14 | Outpatient (BNVA) | payer OTHER, SELFPAY | PROVIDERS: PCP Family Medicine; Visit Provider Internal Medicine ==

== ENCOUNTER → 2023-11-09 10:32 | Outpatient (BNVA) | payer OTHER, SELFPAY | PROVIDERS: PCP Family Medicine; Visit Provider Internal Medicine ==

== ENCOUNTER → 2023-11-23 11:19 | Outpatient (BNVA) | payer OTHER, SELFPAY | PROVIDERS: PCP Family Medicine; Visit Provider Internal Medicine ==

== ENCOUNTER → 2023-12-07 12:35 | Outpatient (BNVA) | payer OTHER, SELFPAY | PROVIDERS: PCP Family Medicine; Visit Provider Internal Medicine ==

== ENCOUNTER → 2023-12-21 15:13 | Outpatient (BNVA) | payer OTHER, SELFPAY | PROVIDERS: PCP Family Medicine; Visit Provider Internal Medicine ==

== ENCOUNTER → 2024-01-05 11:38 | Outpatient (BNVA) | payer OTHER, SELFPAY | PROVIDERS: PCP Family Medicine; Visit Provider Internal Medicine | DX: Z79.01 Long term (current) use of anticoagulants (principal) ==

== ENCOUNTER → 2024-01-19 11:46 | Outpatient (BNVA) | payer OTHER, SELFPAY | PROVIDERS: PCP Family Medicine; Visit Provider Internal Medicine ==

== ENCOUNTER → 2024-02-02 08:51 | Outpatient (BNVA) | payer OTHER, SELFPAY | PROVIDERS: PCP Family Medicine; Visit Provider Internal Medicine ==

== ENCOUNTER → 2024-02-15 12:43 | Outpatient (BNVA) | payer OTHER, SELFPAY | PROVIDERS: PCP Family Medicine; Visit Provider Internal Medicine ==

== ENCOUNTER → 2024-02-29 10:12 | Outpatient (BNVA) | payer OTHER, SELFPAY | PROVIDERS: PCP Family Medicine; Visit Provider Internal Medicine ==

== ENCOUNTER → 2024-03-14 11:04 | Outpatient (BNVA) | payer OTHER, SELFPAY | PROVIDERS: PCP Family Medicine; Visit Provider Internal Medicine ==

== ENCOUNTER 2024-03-28 08:18 | Outpatient (AMB) | payer OTHER, SELFPAY ==
--- NOTE | 2024-03-28 08:26 | A.OFFPC_ITS ---
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 Accompanied by: Self / Same As Patient Allergies No Known Allergies Allergy (Verified 03/28/24 08:37) Medication List - Last Reconciled 03/28/24 by Himanshu Acevedo MD atorvastatin 40 mg PO BEDTIME 90 days empagliflozin (Jardiance) 10 mg PO DAILY 90 days metoprolol succinate ER 150 mg (1.5 x 100 mg) PO DAILY 90 days sacubitril-valsartan 49-51 mg (Entresto) 1 tab PO BID 90 days sertraline 100 mg PO DAILY 90 days spironolactone 25 mg PO DAILY 90 days warfarin 5 mg See Protocol PO DAILY 90 days Tobacco use date assessed: 03/28/24 Dental Screening Dental Screen Date: 03/28/24 Did you have a dental visit in the last 12 months?: Yes Did you have a dental problem in the last 6 months where you did not have access to dental care?: No Was dental information given to patient?: Patient has dentist HPI CPE, Diabetic not seen since 10/06 HPI Details 63 y/o male presents for a CPE with f/u labs and health maintenance. No recent labs to review. A1c today 03/28/24 5.8%. Blood pressure today 108/60. He is on spironolactone 25mg, metoprolol 150mg daily. [facility] Medical History (Updated 03/28/24 @ 08:40 by ANIBAL Alas) No pertinent past medical history Surgical History Status post biventricular cardiac pacemaker insertion H/O cardiac radiofrequency ablation Hx of colonoscopy Family History (Updated 03/28/24 @ 08:41 by ANIBAL Alas) Father Cancer Mother Heart problem Social History Household Members: None Housing: House Alcohol intake: current Alcohol intake frequency: a few times a month Patient Tobacco Use Status: Never used Tobacco e-Cigarette/Vaping Use: Never Used Second Hand Smoke Exposure: No service: No Current occupational status: employed Current occupation: HVAC Current occupational exposures/hazards: No Cognitive needs: No Hearing needs: No Vision needs: No Questionnaire PHQ-9 Over the last 2 weeks, how often have you been bothered by any of the following problems? 1. Little interest or pleasure in doing things: not at all 2. Feeling down, depressed, or hopeless: not at all 3. Trouble falling or staying asleep, or sleeping too much: not at all 4. Feeling tired or having little energy: not at all 5. Poor appetite or overeating: not at all 6. Feeling bad about yourself - or that you are a failure or have let yourself or your family down: not at all 7. Trouble concentrating on things, such as reading the newspaper or watching television: not at all 8. Moving or speaking so slowly that other people could have noticed. Or the opposite - being so fidgety or restless that you have been moving around a lot more than usual: not at all 9. Thoughts that you would be better off or of hurting yourself in some way: not at all Total score: 0 Depression Screening Interpretation: Negative Depression Screening Done: Yes 69901 - PHQ-9 Billing: Yes Source: Developed by Drs. Carlin Andrade, Priti Sigala, Lele Rivera and colleagues, with an educational sid from [employer]. Thrive Questionnaire Date Thrive assessed: 03/28/24 I am a: Patient What is your living situation today?: I have a steady place to live Within the past 12 months, did the food you bought not last and you didn't have the money to get more?: Never true Within the past 12 months, did you worry whether your food would run out before you got money to buy more?: Never true Do you have trouble paying for medicines?: No Do you have trouble getting transportation to medical appointments?: No Do you have trouble paying your heating and electricity bill?: No Do you have trouble taking care of your child, family member or friend?: No Do you have trouble with day-to-day activities such as bathing, preparing meals, shopping, managing finances, etc.?: No Are you currently unemployed and looking for a job?: No Are you interested in more education?: No Please select the resources that you would like help with: None Currently or been in a relationship where the following occur: no concerns reported THRIVE Score: 0 AUDIT C Alcohol Use Questionnaire (AUDIT-C) 1. How often do you have a drink containing alcohol?: 2-3 times a week 2. How many drinks containing alcohol do you have on a typical day when you are drinking?: 3 or 4 3. How often do you have six or more drinks on one occasion?: Never Total Score: 4 LISANDRO-7 AMB Questionnaire LISANDRO-7 Date LISANDRO - 7 assessed: 03/28/24 Feeling nervous, anxious, or on edge: 0 = Not at all Not being able to stop or control worryin = Not at all Worrying too much about different things: 0 = Not at all Trouble relaxin = Not at all Being so restless that it is hard to sit still: 0 = Not at all Becoming easily annoyed or irritable: 0 = Not at all Feeling afraid as if something awful might happen: 0 = Not at all Total LISANDRO-7 score (0-4 normal; 5-9 mild; 10-14 moderate; 15-21 severe): 0 Source: Developed by Drs. Carlin Andrade, Priti Sigala, Lele Rivera and colleagues, with an educational sid from [employer]. LISANDRO-7 Assessment Billing LISANDRO-7 Assessment Tool: LISANDRO-7 Assessment 47358 Review of Systems Const Denies chills, Denies fatigue, Denies fever(s), Denies headache(s) and Denies weakness Eyes Denies change in vision ENT Denies dizziness, Denies headache(s), Denies hearing loss, Denies nasal congestion, Denies sinus pain, Denies sinus pressure and Denies sore throat Card Denies chest pain, Denies lightheadedness, Denies dyspnea and Denies other (palpitations) Resp Denies cough, Denies dyspnea and Denies wheezing GI Denies abdominal pain, Denies melena, Denies hematochezia, Denies change in bowel habits, Denies dyspepsia and Denies nausea Denies hematuria and Denies dysuria Musc Denies abnormal gait, Denies myalgias, Denies arthralgias, Denies numbness and Denies tingling Skin/Breast Denies rash, Denies unusual bruising and Denies wounds Neuro Denies abnormal gait, Denies dizziness, Denies headache(s), Denies memory loss, Denies numbness, Denies Sensory deficit (Neuro), Denies tingling and Denies weakness Psych Denies anxiety, Denies depression and Denies memory loss Endo Denies cold intolerance, Denies fatigue, Denies heat intolerance, Denies polydipsia and Denies polyuria Guevara/Lymph Denies easy bleeding and Denies easy bruising Aller/Immun Denies wheezing Physical exam (Primary Care) Vital Signs: Last Vital Signs Temp 97.6 F 03/28/24 08:27 Pulse 72 03/28/24 08:27 Resp 14 03/28/24 08:27 BP 108/60 03/28/24 08:27 Pulse Ox 98 03/28/24 08:27 Oxygen Delivery Method Room Air 03/28/24 08:27 BMI result Body Mass Index 28.3 Tobacco/Smoking Status: Tobacco use Status Tobacco use date assessed 03/28/24 03/28/24 08:42 Patient Tobacco Use Status Never used Tobacco 03/28/24 08:26 e-Cigarette/Vaping Use Never Used 03/28/24 08:26 PHQ-9: PHQ-9 Score PHQ-9: Total score 0 03/28/24 08:50 Depression Screening Interpretation: Negative Thrive Assessment: Date of Thrive Assessment Date Thrive assessed 03/28/24 03/28/24 08:42 Currently or been in a relationship where the following occur: no concerns reported Const General: no acute distress, well developed, alert and awake Nutritional Appearance: well nourished Orientation/consciousness: patient oriented x3 HENMT Head: Yes normocephalic and Yes atraumatic Ears: hearing grossly normal bilaterally and TM's normal bilaterally General nose exam: Normal external nose present and Normal nares present Mouth: Normal oral and palatal mucosa present and moist mucous membranes Teeth and gingiva: dentition normal Throat: Yes posterior oropharynx normal Eyes General: appearance normal, both eyes and all related structures Pupils: Equal, round and reactive pupils present and Pupil accommodation reflex normal EOM: EOMs intact bilaterally Neck Neck: Yes normal visual inspection, Yes no lymphadenopathy and Yes trachea midline Thyroid: Thyroid normal Carotids: no bruits Lymphatic: no lymphadenopathy noted Chest Chest palpation & inspection: normal inspection of the chest Resp Effort & Inspection: normal respiratory effort Auscultation: clear to auscultation bilaterally Cardio Rate: regular rate Rhythm: abnormal rhythm and abnormal rhythm irregularly irregular Heart sounds: S1 normal heart sound present, S2 normal heart sound present, no gallops, no murmurs and no rubs Bruits: no abdominal aortic bruits and no carotid bruits GI Palpation (GI): No Abdominal aortic bruit present, Soft to palpation, nontender, No hepatosplenomegaly present and No Rebound tenderness present Auscultation: normal bowel sounds General: Yes no CVA tenderness Back/Spine/Pelvis Back: no CVA tenderness Cervical Spine: cervical ROM normal and No Cervical spine tenderness Thoracic/Lumbar Spine: thoraco-lumbar ROM normal, No pain with thoraco-lumbar ROM, No thoracic spinal tenderness and No lumbar spinal tenderness Skin Lesions: no lesions Rashes: no rashes Trauma: no lacerations or abrasions Wounds: no wounds Nails: normal Neuro General: patient oriented x3 Cranial nerves: Yes Equal, round and reactive pupils present Cognition (Neuro): normal cognition Gait exam (Neuro): Normal gait present Motor exam (neuro): 5/5 motor strength present throughout Sensory Exam: No Sensory deficit (Neuro) Deep tendon reflexes (DTR's): Right patellar reflex intensity grade: 2+ and Left patellar reflex intensity grade: 2+ Extrem General: Yes normal to inspection and No edema Psych Appearance: grossly normal Affect: normal affect Attitude: cooperative Thought process: Normal thought process present Results AMB Hemoglobin A1c AMB Hemoglobin A1c 5.8 % Last Edit by Olga Gross CMA on 03/28/24 08:46 Results Reviewed Results Reviewed: Laboratory Last Values Hgb A1c (Clinic) 5.8 % (4.0-6.0) 03/28/24 08:36 Assessment and Plan Assessment & Plan (1) Adult general medical exam: Code(s): Z00.00 - Encounter for general adult medical examination without abnormal findings Plan: 63-year-old?male?presents?for?complete?physical?exam No?recent?labs?and?I?have?ordered?these.??We?can?follow- up?in?a?few?weeks?on?this Exam?within?normal?limits (2) Essential hypertension: Code(s): I10 - Essential (primary) hypertension Plan: Blood?pressure?is?controlled.??Goal?is?less?than?130/80 Continue?current?medications (3) High cholesterol: Code(s): E78.00 - Pure hypercholesterolemia, unspecified Plan: LDL?cholesterol?had?been?a?little?above?goal?of?less?than?70 Increased?atorvastatin?at?last?visit?and?he?is?tolerating?this Recheck?lipid (4) Atrial fibrillation: Code(s): I48.91 - Unspecified atrial fibrillation Plan: Chronic?AFib?and?he?is?on?warfarin He?would?like?to?switch?to?Eliquis May?have?issues?with?insurance.??Could?also?consider?Js (5) Screening for prostate cancer: Code(s): Z12.5 - Encounter for screening for malignant neoplasm of prostate Plan: Check?PSA (6) Colon cancer screening: Comment: has had 2 last was at [facility] Code(s): Z12.11 - Encounter for screening for malignant neoplasm of colon Plan: Had?been?followed?by?[facility]?and?more?recently?[facility] Up-to-date?and?will?follow-up?with?[facility]?as?recommended I?advised?he?call?gastroenterology (7) Current use of anticoagulant therapy: Code(s): Z79.01 - termite treater (current) use of anticoagulants Plan: As?above,?will?try?to?switch?to?[place] (8) Pre-diabetes: Code(s): R73.03 - Prediabetes Plan: Elevated?blood?sugars/pre?diabetes?with?coronary?artery?disease He?is?on?Jardiance A1c?5.8% Continue?current?medication Orders: Orders Complete Blood Count Auto Diff Today Z00.00 - Encounter for general adult medical examination without abnormal findings Lipid Panel Today Z00.00 - Encounter for general adult medical examination without abnormal findings Microalbumin, Random (w Creat) Today I10 - Essential (primary) hypertension Prostate Specific Antigen Scr Today Z12.5 - Encounter for screening for malignant neoplasm of prostate UA and rflx microscopic Today Z00.00 - Encounter for general adult medical examination without abnormal findings AMB Hemoglobin A1c Today Z13.9 - Encounter for screening, unspecified Comprehensive [place]. Panel Fast Today Z00.00 - Encounter for general adult medical examination without abnormal findings TSH reflex Free T4 Today Z00.00 - Encounter for general adult medical examination without abnormal findings Medications: New apixaban (Eliquis) 5 mg PO BID 90 days 180 tabs 0RF I25.10 - Atherosclerotic heart disease of [place] coronary artery without angina pectoris, I48.91 - Unspecified atrial fibrillation Coding Level of Care Code Est Pt Level 3 (39770) Est Pt Prev Care 40-64y(21902) Diagnoses Adult general medical exam Z00.00 Essential hypertension I10 High cholesterol E78.00 Atrial fibrillation I48.91 Screening for prostate cancer Z12.5 Colon cancer screening Z12.11 Current use of anticoagulant therapy Z79.01 Pre-diabetes R73.03 Additional Codes LISANDRO-7 Assessment Billing - LISANDRO-7 Assessment Tool: LISANDRO-7 Assessment 12712 ([id number])
[2024-03-28 08:27] VITALS: BP 108/60; PULSE 72; RESP 14; TEMP 36.4; O2SAT 98; BMI 28.3
== END 2024-03-28 09:10 | disposition home or self-care (01) ==
PROVIDERS: PCP Family Medicine; Visit Provider Family Medicine
DX: Z00.00 Encounter for general adult medical examination without abnormal findings (principal); I10 Essential (primary) hypertension; E78.00 Pure hypercholesterolemia, unspecified; I48.91 Unspecified atrial fibrillation; R73.03 Prediabetes; Z12.5 Encounter for screening for malignant neoplasm of prostate; Z12.11 Encounter for screening for malignant neoplasm of colon; Z79.01 Long term (current) use of anticoagulants
CPT/HCPCS: 83036; 99213; 99396

== ENCOUNTER 2024-03-28 09:14 | Outpatient (REF) | payer OTHER, SELFPAY ==
[2024-03-28 11:42] LABS: MANUAL DIFF FLAG NO
[2024-03-28 11:52] LABS: Appearance Urine Clear; Color Urine Dark Yellow; Glucose Urine UA >=1000 mg/dL (Negative); Leukocyte Esterase Urine Negative (Negative); Nitrite Urine Negative (Negative); PH 5.5 (5.0-9.0); Specific Gravity - Urine >= 1.030 (1.005-1.025); UMIC TRIGGER UA YES; Urine Blood Negative (Negative); Urine Ketones Trace mg/dL (Negative); Urine Protein Negative (Neg-Trace)
[2024-03-28 11:58] LABS: Basophils Absolute Auto 0.1 X10*3/uL (0.0-0.2); Basophils Percent Auto 1.6 % (0-2); Eosinophils Absolute Auto 0.3 X10*3/uL (0.0-0.4); Eosinophils Percent Auto 4.5 % (0-4); Hematocrit 45.7 % (42.0-52.0); Hemoglobin 14.9 g/dl (14.0-18.0); Imm Gran Abs Auto 0.01 X10*3/uL (0.00-0.03); Imm Gran Pct Auto 0.2 % (0.0-0.4); Lymphocytes Absolute Auto 1.6 X10*3/uL (1.2-4.9); Lymphocytes Percent Auto 28.1 % (20-40); Mean Corpuscular HGB Conc 32.6 g/dl (31.0-36.0); Mean Corpuscular Hemoglobin 30.9 pg (27.0-33.0); Mean Corpuscular Volume 94.8 fL (80.0-98.0); Mean Platelet Volume 10.3 fL (9.4-12.4); Monocytes Absolute Auto 0.6 X10*3/uL (0.1-1.2); Monocytes Percent Auto 9.9 % (2-11); Neutrophils Absolute Auto 3.2 x10*3/uL (2.0-8.3); Neutrophils Percent Auto 55.7 % (45-73); Platelet Count 266 X10*3/uL (160-400); Red Blood Count 4.82 X10*6/uL (4.60-5.80); Red Cell Distribution Width 13.8 % (11.0-16.0); White Blood Count 5.8 X10*3/uL (4.8-10.8)
[2024-03-28 12:02] LABS: Bacteria Urine None Seen (None Seen); Hyaline Casts Urine 0-2 /LPF (0-2); RBC Urine 0-2 /HPF (0-2); Squamous Epithelial Cell Urine 0-2 /HPF (0-2); WBC Urine 0-5 /HPF (0-5)
[2024-03-28 12:28] LABS: Alanine Aminotransferase 29 U/L (0-40); Albumin Level 4.3 g/dL (3.5-5.0); Alkaline Phosphatase 63 U/L (39-117); Anion Gap 10 (12-20); Aspartate Amino Transferase 29 U/L (5-37); Bilirubin Total 0.7 mg/dL (0.0-1.0); Blood Urea Nitrogen 22 mg/dL (9-16); Calcium 9.7 mg/dL (8.4-10.2); Carbon Dioxide 29 mmol/L (22-29); Chloride 103 mmol/L (96-108); Cholesterol 135 mg/dL (<200); Estimated Glomerular Filt Rate > 60; Glucose Fasting 107 mg/dL (60-99); HDL Cholesterol 43 mg/dL (>40); LDL Cholesterol Calculated 72 mg/dL (<100); Potassium 4.4 mmol/L (3.3-5.1); Sodium 138 mmol/L (135-145); Total Protein 7.8 g/dL (6.5-8.0); Triglycerides 104 mg/dL (<150)
[2024-03-28 12:29] LABS: Creatinine Urine 195.94 mg/dL; Microalbum/Creatinine Ratio Ur 7.6 ug/mg cr (<30)
[2024-03-28 12:32] LABS: Prostate Specific Antigen Scr 4.52 ng/mL (<0.05-4.0)
[2024-03-28 12:49] LABS: TSH reflex Free T4 1.76 uIU/mL (0.32-4.0)
== END 2024-03-28 09:15 | disposition home or self-care (01) ==
LOC: HO.WFDLDS 09:14
PROVIDERS: Visit Provider Family Medicine
DX: Z00.00 Encounter for general adult medical examination without abnormal findings (principal); I10 Essential (primary) hypertension; Z12.5 Encounter for screening for malignant neoplasm of prostate
CPT/HCPCS: 36415; 80053; 80061; 81001; 82043; 82570; 84153; 84443; 85025

== ENCOUNTER → 2024-04-09 10:54 | Outpatient (BNVA) | payer OTHER, SELFPAY | PROVIDERS: PCP Family Medicine; Visit Provider Internal Medicine ==

== ENCOUNTER 2024-04-09 13:17 | Outpatient (REF) | payer OTHER, SELFPAY ==
[2024-04-09 18:31] LABS: Anion Gap 12 (12-20); Blood Urea Nitrogen 24 mg/dL (9-16); Calcium 9.7 mg/dL (8.4-10.2); Carbon Dioxide 25 mmol/L (22-29); Chloride 105 mmol/L (96-108); Estimated Glomerular Filt Rate > 60; Glucose Random 77 mg/dL (60-115); Potassium 4.3 mmol/L (3.3-5.1); Sodium 138 mmol/L (135-145)
[2024-04-09 18:52] LABS: Prostate Specific Antigen Scr 4.97 ng/mL (<0.05-4.0)
== END 2024-04-09 13:18 | disposition home or self-care (01) ==
LOC: HO.WFDLDS 13:17
PROVIDERS: Visit Provider Family Medicine
DX: Z00.00 Encounter for general adult medical examination without abnormal findings (principal); R97.20 Elevated prostate specific antigen [PSA]; Z12.5 Encounter for screening for malignant neoplasm of prostate
CPT/HCPCS: 36415; 80048; 84153

== ENCOUNTER → 2024-04-11 09:22 | Outpatient (BNVA) | payer OTHER, SELFPAY | PROVIDERS: PCP Family Medicine; Visit Provider Internal Medicine ==

== ENCOUNTER 2024-05-06 16:15 | Outpatient (AMB) | payer OTHER, SELFPAY ==
--- NOTE | 2024-05-06 16:15 | A.OFFPC_ITS ---
Intake Visit Reasons: f/u CPE-labs via telemedicine Allergies No Known Allergies Allergy (Verified 05/06/24 16:16) Tobacco use date assessed: 03/28/24 Dental Screening Dental Screen Date: 03/28/24 Did you have a dental visit in the last 12 months?: Yes Did you have a dental problem in the last 6 months where you did not have access to dental care?: No Was dental information given to patient?: Patient has dentist HPI f/u CPE-labs via telemedicine HPI Details 63 y/o male presents to f/u CPE-labs via telemedicine. Labs drawn 03/28/24. Reviewed labs with pt. Elevated fasting glucose of 107. A1c 5.8% - pre-diabetes range. Taking?Jardianc e?as?prescribed PSA elevated at 4.52, 4.97 upon recheck 04/09/24. Triglycerides 104. TC 135. LDL 72. HDL 43. He is on artovastatin 40mg. PFSH Medical History No pertinent past medical history Surgical History Status post biventricular cardiac pacemaker insertion H/O cardiac radiofrequency ablation Hx of colonoscopy Family History Father Cancer Mother Heart problem Social History Household Members: None Housing: House Alcohol intake: current Alcohol intake frequency: a few times a month Patient Tobacco Use Status: Never used Tobacco e-Cigarette/Vaping Use: Never Used Second Hand Smoke Exposure: No service: No Current occupational status: employed Current occupation: [employer] Current occupational exposures/hazards: No Cognitive needs: No Hearing needs: No Vision needs: No Questionnaire PHQ-9 Over the last 2 weeks, how often have you been bothered by any of the following problems? 1. Little interest or pleasure in doing things: not at all 2. Feeling down, depressed, or hopeless: not at all 3. Trouble falling or staying asleep, or sleeping too much: not at all 4. Feeling tired or having little energy: not at all 5. Poor appetite or overeating: not at all 6. Feeling bad about yourself - or that you are a failure or have let yourself or your family down: not at all 7. Trouble concentrating on things, such as reading the newspaper or watching television: not at all 8. Moving or speaking so slowly that other people could have noticed. Or the opposite - being so fidgety or restless that you have been moving around a lot more than usual: not at all 9. Thoughts that you would be better off or of hurting yourself in some way: not at all Total score: 0 Depression Screening Interpretation: Negative Depression Screening Done: Yes 63527 - PHQ-9 Billing: Yes Source: Developed by Drs. Carlin Andrade, Priti Sigala, Lele Rivera and colleagues, with an educational sid from [employer]. Thrive Questionnaire Date Thrive assessed: 03/28/24 I am a: Patient What is your living situation today?: I have a steady place to live Within the past 12 months, did the food you bought not last and you didn't have the money to get more?: Never true Within the past 12 months, did you worry whether your food would run out before you got money to buy more?: Never true Do you have trouble paying for medicines?: No Do you have trouble getting transportation to medical appointments?: No Do you have trouble paying your heating and electricity bill?: No Do you have trouble taking care of your child, family member or friend?: No Do you have trouble with day-to-day activities such as bathing, preparing meals, shopping, managing finances, etc.?: No Are you currently unemployed and looking for a job?: No Are you interested in more education?: No Please select the resources that you would like help with: None THRIVE Score: 0 AUDIT C Alcohol Use Questionnaire (AUDIT-C) 1. How often do you have a drink containing alcohol?: 2-3 times a week 2. How many drinks containing alcohol do you have on a typical day when you are drinking?: 3 or 4 3. How often do you have six or more drinks on one occasion?: Never Total Score: 4 LISANDRO-7 AMB Questionnaire LISANDRO-7 Date LISANDRO - 7 assessed: 03/28/24 Feeling nervous, anxious, or on edge: 0 = Not at all Not being able to stop or control worryin = Not at all Worrying too much about different things: 0 = Not at all Trouble relaxin = Not at all Being so restless that it is hard to sit still: 0 = Not at all Becoming easily annoyed or irritable: 0 = Not at all Feeling afraid as if something awful might happen: 0 = Not at all Total LISANDRO-7 score (0-4 normal; 5-9 mild; 10-14 moderate; 15-21 severe): 0 Source: Developed by Drs. Carlin Andrade, Priti Sigala, Lele Rivera and colleagues, with an educational sid from [employer]. LISANDRO-7 Assessment Billing LISANDRO-7 Assessment Tool: LISANDRO-7 Assessment 43833 Review of Systems Const Denies chills, Denies fatigue, Denies fever(s), Denies headache(s) and Denies weakness ENT Denies dizziness and Denies headache(s) Card Denies dyspnea Resp Denies cough, Denies dyspnea, Denies wheezing and Denies other (shortness of breath) Musc Denies numbness and Denies tingling Neuro Denies dizziness, Denies headache(s), Denies numbness, Denies tingling and Denies weakness Psych Denies anxiety and Denies depression Endo Denies fatigue Aller/Immun Denies wheezing Physical exam (Primary Care) Tobacco/Smoking Status: Tobacco use Status Tobacco use date assessed 03/28/24 05/06/24 16:17 Patient Tobacco Use Status Never used Tobacco 05/06/24 16:17 e-Cigarette/Vaping Use Never Used 05/06/24 16:17 PHQ-9: PHQ-9 Score PHQ-9: Total score 0 05/06/24 16:56 Depression Screening Interpretation: Negative Thrive Assessment: Date of Thrive Assessment Date Thrive assessed 03/28/24 05/06/24 16:17 Assessment and Plan Assessment & Plan (1) Pre-diabetes: Code(s): R73.03 - Prediabetes Plan: A1c?in?pre?diabetes?range He?is?on?Jardiance?as?he?also?has?coronary?artery?disease Continue?Jardiance?as?prescribed Continue?diet?low?in?sugars?and?starches (2) High cholesterol: Code(s): E78.00 - Pure hypercholesterolemia, unspecified Plan: LDL?cholesterol?is?2?points?above?goal?of?less?than?70 Continue?atorvast atin?as?prescribed?and?work?at?a?diet?lower?in?sugars?and?starches Continue?active?lifestyle/exercise (3) Elevated PSA: Code(s): R97.20 - Elevated prostate specific antigen [PSA] Plan: PSA?elevated?x2?and?I?referred?him?to?Urology.??He?has?an?appointment?in?May Coding Level of Care Code Tele Est Pt Level 2 (38910) Diagnoses Pre-diabetes R73.03 High cholesterol E78.00 Elevated PSA R97.20 Additional Codes LISANDRO-7 Assessment Billing - LISANDRO-7 Assessment Tool: LISANDRO-7 Assessment 54630 ([id number])
== END 2024-05-06 16:53 ==
LOC: HO.HMGFM 16:15
PROVIDERS: PCP Family Medicine; Visit Provider Family Medicine
DX: R73.03 Prediabetes (principal); E78.00 Pure hypercholesterolemia, unspecified; R97.20 Elevated prostate specific antigen [PSA]
CPT/HCPCS: 99212

== ENCOUNTER 2024-07-05 14:21 | Outpatient (AMB) | payer OTHER, SELFPAY ==
--- NOTE | 2024-07-05 14:35 | A.OFFVIS_ITS ---
Intake Visit Reasons: elevated PSA Intake Note: Patient is present for ELEVATED PSA Urology Medication:NONE Antibiotic Allergy:NONE Blood Thinner:ELIQUIS Cloth Drier Required: No Allergies No Known Allergies Allergy (Verified 07/05/24 14:36) Medication List - Last Reconciled 07/05/24 by Allie Jaramillo MD apixaban (Eliquis) 5 mg PO BID 90 days atorvastatin 40 mg PO BEDTIME 90 days empagliflozin (Jardiance) 10 mg PO DAILY 90 days metoprolol succinate ER 150 mg (1.5 x 100 mg) PO DAILY 90 days sacubitril-valsartan 49-51 mg (Entresto) 1 tab PO BID 90 days sertraline 100 mg PO DAILY 90 days spironolactone 25 mg PO DAILY 90 days HPI Comments Details: Lan is a 63 year old male h/o Afib on Eliquis, who is here for evaluation due to elevated PSA-04/09/2024--4.97 Denies family history of prostate cancer States has noticed decrease in force of urinary stream. prostate exam- mildly enlarged, smooth I have discussed that elevated PSA may indicate changes in the prostate including benign enlargement, cancer and an inflammatory condition. I have discussed doing a biopsy has risks and that management in early detection of prostate cancer may include active surveillance. [facility] Medical History No pertinent past medical history Surgical History Status post biventricular cardiac pacemaker insertion H/O cardiac radiofrequency ablation Hx of colonoscopy Family History Father Cancer Mother Heart problem Social History Household Members: None Housing: House Alcohol intake: current Alcohol intake frequency: a few times a month Patient Tobacco Use Status: Never used Tobacco e-Cigarette/Vaping Use: Never Used Second Hand Smoke Exposure: No service: No Current occupational status: employed Current occupation: [employer] Current occupational exposures/hazards: No Cognitive needs: No Hearing needs: No Vision needs: No Review of Systems Const All systems reviewed & are unremarkable except as noted in HPI and below Reports no additional complaints Eyes Reports no additional complaints ENT Reports no additional complaints Card Reports no additional complaints Resp Reports no additional complaints GI Reports no additional complaints Reports as per HPI Musc Reports no additional complaints Skin/Breast Reports system reviewed and no additional complaints, except as documented Neuro Reports no additional complaints Psych Reports no additional complaints Endo Reports no additional complaints Guevara/Lymph Reports no additional complaints Aller/Immun Reports no additional complaints Physical Exam Const General: healthy appearing, no acute distress and well developed Orientation/consciousness: patient oriented x3 HEENT Head: Yes normocephalic and Yes atraumatic Eyes Conjunctivae: conjunctivae normal Neck Neck: Yes normal visual inspection Chest Chest palpation & inspection: normal inspection of the chest Resp Effort & Inspection: normal respiratory effort Cardio Rate: regular rate GI Inspection: Yes normal to inspection Other: Prostate Exam: Smooth mild to moderately enlarged no suspicious nodules palpated Skin General skin exam: no rashes or lesions noted Neuro General: patient oriented x3 Extrem General: No pedal edema Psych Appearance: grossly normal Affect: normal affect Results AMB Urinalysis, Automated UA Leukoctes 0 Da/uL Last Edit by Ama Coronado CCM on 07/05/24 14:54 UA Nitrite Negative Last Edit by Ama Coronado [facility] on 07/05/24 14:54 UA Urobilinogen 0.2 mg/dL Last Edit by ANIBAL Trujillo on 07/05/24 14:5 4 UA Protein 0 mg/dL Last Edit by Ama Coronado [facility] on 07/05/24 14:54 UA pH 6.0 Last Edit by Ama Coronado [facility] on 07/05/24 14:54 UA Blood 0 Scotty/uL Last Edit by Ama Coronado [facility] on 07/05/24 14:54 UA Specific [place] 1.025 Last Edit by Ama Coronado [facility] on 07/05/24 14: 54 UA Ketone Negative Last Edit by ANIBAL Trujillo on 07/05/24 14:54 UA Bilirubin 0 mg/dL Last Edit by Ama Coronado [facility] on 07/05/24 14:54 UA Glucose 1000 mg/dL Last Edit by Ama Coronado [facility] on 07/05/24 14:54 Results Reviewed Results Reviewed: Laboratory Last Values Urine pH (Auto) 6.0 07/05/24 14:53 Specific [place] (Auto) 1.025 07/05/24 14:53 Urine Protein (Auto) 0 mg/dL 07/05/24 14:53 Glucose (UA)(Auto) 1000 mg/dL 07/05/24 14:53 Urine Ketones (Auto) Negative 07/05/24 14:53 Urine Blood (Auto) 0 Scotty/uL 07/05/24 14:53 Urine Nitrite (Auto) Negative 07/05/24 14:53 Urine Bilirubin (Auto) 0 mg/dL 07/05/24 14:53 Urine Urobilinogen (Auto) 0.2 mg/dL 07/05/24 14:53 Leukocyte Esterase (Auto) 0 Da/uL 07/05/24 14:53 Assessment & Plan Assessment & Plan (1) Elevated PSA: Code(s): R97.20 - Elevated prostate specific antigen [PSA] Category: Medical (2) BPH with elevated PSA: Code(s): N40.0 - Benign prostatic hyperplasia without lower urinary tract symptoms; R97.20 - Elevated prostate specific antigen [PSA] Category: Medical Plan Prostate biopsy will need to stop EliquSuperfly medicine clearance Orders: Orders AMB Urinalysis Automated 07/05/24 Z13.9 - Encounter for screening, unspecified Medications: New ciprofloxacin HCl start antibiotic 1 days prior to prostate biopsy 500 mg PO BID 8 tabs 0RF prostate biopsy diazepam (Valium) bring to procedure appointment. To be taken 15 minutes prior to procedure 5 mg PO DAILY 1 tab 0RF for prostate bx Patient Instructions: The patient had an opportunity to ask questions regarding treatment plan. The patient expressed understanding and agreement with the above treatment plan. The patient is aware they should contact our office by phone for worsening of their current condition or the appearance of new symptoms. Compliance is encouraged with any medications and followup testing that is ordered. It is a privilege to be allowed the opportunity to participate in the urologic care of your patient. If you have any questions or concerns regarding treatment for the above conditions please do not hesitate to contact me. The office telephone contact is [phone]. This note is constructed in part using voice recognition software. While every effort has been made to ensure accuracy stripper machine operator errors may have been included. Yours sincerely, Allie Jaramillo MD Coding Level of Care Code New Pt Level 4 (95171) Diagnoses Elevated PSA R97.20 BPH with elevated PSA N40.0; R97.20
== END 2024-07-05 15:26 | disposition home or self-care (01) ==
PROVIDERS: PCP Family Medicine; Visit Provider Urology
DX: R97.20 Elevated prostate specific antigen [PSA] (principal); N40.0 Benign prostatic hyperplasia without lower urinary tract symptoms
CPT/HCPCS: 99204

== ENCOUNTER → 2024-07-05 14:21 | Outpatient (BNVA) | payer OTHER, SELFPAY | PROVIDERS: PCP Family Medicine; Visit Provider Urology | DX: R97.20 Elevated prostate specific antigen [PSA] (principal); N40.0 Benign prostatic hyperplasia without lower urinary tract symptoms | CPT/HCPCS: 81003 ==

== ENCOUNTER 2024-08-16 07:43 | Outpatient (REF) | payer OTHER, SELFPAY ==
[2024-08-16] MEDS: Lidocaine HCl 1 % MPF 5 ML VIAL 15 ML SUBCUT (08:50)
--- NOTE | 2024-08-16 20:35 | W.PM.OPN ---
Operative Note Operative Note Date of Service: 08/16/24 Narrative: PreOperative Diagnosis:? ? Elevated PSA Post Operative Diagnosis:??Elevated PSA Procedure:?1. Transrectal ultrasound guided biopsy of the prostate 12 core 2. Transrectal ultrasound measurement of prostate 3. Transrectal ultrasound guided pudendal nerve block Surgeon:?Dr Allie Jaramillo Anesthesia:? Local Indications for procedure: Elevated PSA Procedure: Preoperative antibiotics confirmed. After informed consent was verified the patient was placed on the procedure table in left lateral position. Patient identity confirmed. Safety pause time-out performed. Digital rectal exam performed to dilate rectal sphincter, iodine mixed with lubricant jelly 30 cc placed per rectum. Ultrasound probe was placed per rectum. The prostate was visualized. The prostate was measured width 5.52 cm, height 4.40 cm, length 5.30 cm with a volume of 67.3 mL. An ultrasound guided pudendal nerve block was performed using 10 cc of 1% lidocaine. A 12 core biopsy was performed from the left base, left mid, left apex and right base, mid, apex 2 biopsies from each section. The ultrasound probe was removed and digital palpation of the prostate for 1-2 minutes for hemostasis was performed. The patient tolerated the procedure well. Complications: None
== END 2024-08-16 07:44 | disposition home or self-care (01) ==
LOC: HO.US 07:43
PROVIDERS: PCP Family Medicine; Visit Provider Urology
DX: R97.20 Elevated prostate specific antigen [PSA] (principal)
CPT/HCPCS: 55700; 76942; 88305; 88344; J2003

== ENCOUNTER → 2024-08-16 07:43 | Outpatient (BNV) | payer OTHER, SELFPAY | PROVIDERS: PCP Family Medicine; Visit Provider Urology | DX: R97.20 Elevated prostate specific antigen [PSA] (principal) | CPT/HCPCS: 55700; 76872; 76942 ==

== ENCOUNTER 2024-08-23 09:11 | Outpatient (AMB) | payer OTHER, SELFPAY ==
--- NOTE | 2024-08-23 09:15 | A.OFFVIS_ITS ---
Intake Visit Reasons: biopsy f/u- bleeding Intake Note: Patient is present for BIOPSY F/U (BLEEDING) Urology Medication:NONE Antibiotic Allergy:NONE Blood Thinner:ELIQUIS Cigar Tobacco Processing Supervisor Required: No Allergies No Known Allergies Allergy (Verified 08/23/24 09:16) HPI Comments Details: 08/23/24--Lan is being followed for elevated PSA. He is status post prostate biopsy 08/16/24--Left apex lateral: Atypical small acinar proliferation, cannot exclude adenocarcinoma, and high-grade prostatic intraepithelial neoplasia. He is complaining of hematuria post procedure after restarting the Eliquis. The patient was asked to stop the Eliquis and has been off of it for 2 days and states the hematuria is resolved. Discussed will continue to monitor PSA closely. MRI and PSA in 6 months. Review of chart: 07/05/24--Lan is a 63 year old male h/o Afib on Eliquis, who is here for evaluation due to elevated PSA-04/09/2024--4.97 Denies family history of prostate cancer States has noticed decrease in force of urinary stream. prostate exam- mildly enlarged, smooth I have discussed that elevated PSA may indicate changes in the prostate including benign enlargement, cancer and an inflammatory condition. I have discussed doing a biopsy has risks and that management in early detection of prostate cancer may include active surveillance. [facility] Medical History No pertinent past medical history Surgical History Status post biventricular cardiac pacemaker insertion H/O cardiac radiofrequency ablation Hx of colonoscopy Family History Father Cancer Mother Heart problem Social History Household Members: None Housing: House Alcohol intake: current Alcohol intake frequency: a few times a month Patient Tobacco Use Status: Never used Tobacco e-Cigarette/Vaping Use: Never Used Second Hand Smoke Exposure: No service: No Current occupational status: employed Current occupation: HVAC Current occupational exposures/hazards: No Cognitive needs: No Hearing needs: No Vision needs: No Review of Systems Const All systems reviewed & are unremarkable except as noted in HPI and below Reports no additional complaints Eyes Reports no additional complaints ENT Reports no additional complaints Card Reports no additional complaints Resp Reports no additional complaints GI Reports no additional complaints Reports as per HPI Musc Reports no additional complaints Skin/Breast Reports system reviewed and no additional complaints, except as documented Neuro Reports no additional complaints Psych Reports no additional complaints Endo Reports no additional complaints Guevara/Lymph Reports no additional complaints Aller/Immun Reports no additional complaints Results AMB Urinalysis, Automated UA Leukoctes 0 Da/uL Last Edit by ANIBAL Trujillo on 08/23/24 09:27 UA Nitrite Negative Last Edit by Ama Coronado CCM on 08/23/24 09:27 UA Urobilinogen 0.2 mg/dL Last Edit by ANIBAL Trujillo on 08/23/24 09:2 7 UA Protein 15 mg/dL Last Edit by Ama Coronado CCM on 08/23/24 09:27 UA pH 5.5 Last Edit by Ama Coronado CCM on 08/23/24 09:27 UA Blood 25 Scotty/uL Last Edit by Ama Coronado CCM on 08/23/24 09:27 UA Specific [place] 1.025 Last Edit by ANIBAL Trujillo on 08/23/24 09: 27 UA Ketone Negative Last Edit by ANIBAL Trujillo on 08/23/24 09:27 UA Bilirubin 0 mg/dL Last Edit by Ama Coronado CCM on 08/23/24 09:27 UA Glucose 1000 mg/dL Last Edit by Ama Coronado CCM on 08/23/24 09:27 Results Reviewed Results Reviewed: Laboratory Last Values Urine pH (Auto) 5.5 08/23/24 09:27 Specific [place] (Auto) 1.025 08/23/24 09:27 Urine Protein (Auto) 15 mg/dL 08/23/24 09:27 Glucose (UA)(Auto) 1000 mg/dL 08/23/24 09:27 Urine Ketones (Auto) Negative 08/23/24 09:27 Urine Blood (Auto) 25 Scotty/uL 08/23/24 09:27 Urine Nitrite (Auto) Negative 08/23/24 09:27 Urine Bilirubin (Auto) 0 mg/dL 08/23/24 09:27 Urine Urobilinogen (Auto) 0.2 mg/dL 08/23/24 09:27 Leukocyte Esterase (Auto) 0 Da/uL 08/23/24 09:27 Collected: 08/16/24 Location: [facility] [place] Received: 08/16/24 ADDENDUM REPORT Addendum Addendum #1 PIN4 multiplex immunostains are performed on A, C and E with no change to the diagnoses (atypical in C and E; high-grade PIN in A). Electronically Signed By: Himanshu Nieto MD 08/21/24 1157 Diagnosis Prostate, needle core biopsies: A. Left base lateral: High-grade prostatic intraepithelial neoplasia. B. Left base medial: Benign prostatic tissue. C. Left mid lateral: Rare atypical glands. D. Left mid medial: Benign prostatic tissue. E. Left apex lateral: Atypical small acinar proliferation, cannot exclude adenocarcinoma, and high-grade prostatic intraepithelial neoplasia. F. Left apex medial: Benign prostatic tissue. G. Right base lateral: Benign prostatic tissue. H. Right base medial: Benign prostatic tissue. I. Right mid lateral: Benign prostatic tissue. J. Right mid medial: Benign prostatic tissue. K. Right apex lateral: Benign prostatic tissue. L. Right apex medial: Benign prostatic tissue. Patient: Lan Reyes Age/Sex: 63/M [facility] [id number] MR#: [id number] Page 1 of 3 Surgical Pathology [id number] Comment: Immunostains pending on A, C and E; addendum to follow. Clinical History Elevated PSA Microscopic Description Microscopic sections reviewed. Material Received A: Left base lateral B: Left base medial C: Left mid lateral D: Left mid medial E: Left apex lateral F: Left apex medial G: Right base lateral H: Right base medial I: Right mid lateral J: Right mid medial K: Right apex lateral L: Right apex medial Gross Description Received in twelve parts. Part A: Received in formalin labeled ?left base lateral? is a 1.7 cm in length thin and delicate jo-panda cylindrical thread of tissue, submitted in toto in a cassette labeled A. Part B: Received in formalin labeled ?left base medial? is a 1.8 cm in length thin and delicate jo-panda cylindrical thread of tissue, submitted in toto in a cassette labeled B. Part C: Received in formalin labeled ?left mid lateral? is a 1.8 cm in length thin and delicate jo-panda cylindrical thread of tissue, submitted in toto in a cassette labeled C. Part D: Received in formalin labeled ?left mid medial? is a 1.8 cm in length thin and delicate jo-panda cylindrical thread of tissue, submitted in toto in a cassette labeled D. Part E: Received in formalin labeled ?left apex lateral? is a 1.7 cm in length thin and delicate jo-panda cylindrical thread of tissue, submitted in toto in a cassette labeled E. Part F: Received in formalin labeled ?left apex medial? is a 1.8 cm in length thin and delicate oj-white cylindrical thread of tissue, submitted in toto in a cassette labeled F. Part G: Received in formalin labeled ?right base lateral? are 2 jo-white and jo-panda irregular shards and thin and delicate cylindrical threads of tissue measuring 0.2 and 0.9 cm, submitted in toto in a cassette labeled G. Patient: Lan Reyes Age/Sex: 63/M [facility] [id number] MR#: [id number] Page 2 of 3 Surgical Pathology [id number] Part H: Received in formalin labeled ?right base medial? is a 1.5 cm in length thin and delicate jo-panda cylindrical thread of tissue, submitted in toto in a cassette labeled H. Part I: Received in formalin labeled ?right mid lateral? is a 1.4 cm in length thin and delicate jo-panda cylindrical thread of tissue, submitted in toto in a cassette labeled I. Part J: Received in formalin labeled ?right mid medial? is a 1.9 cm in length thin and delicate jo-panda cylindrical thread of tissue, submitted in toto in a cassette labeled J. Part K: Received in formalin labeled ?right apex lateral? is a 1.7 cm in length thin and delicate jo-panda cylindrical thread of tissue, submitted in toto in a cassette labeled K. Part L: Received in formalin labeled ?right apex? is a 1.5 cm in length thin and delicate jo-panda cylindrical thread of tissue, submitted in toto in a cassette labeled L. CEDS This case was reviewed intradepartmentally. Special stains ordered and performed: Multiplex PIN4 stain (HMW keratin, p63, and P504S) on A1, C1 and E1. Copies To Allie Jaramillo MD [facility] [address] [place] [address] [address] [place], [place] [id number] [email or web address] Himanshu Acevedo MD [address] [address] NOTE: Unless otherwise stated, all tissue is formalin-fixed and paraffin- embedded. Some or all of the immunohistochemical tests reported herein may have been developed and their performance characteristics determined by [facility]. They have not been cleared or approved by the U.S. Food and Drug Administration (FDA). However, the FDA has determined that such clearance or approval is not necessary. This laboratory is certified under the Clinical Laboratory Improvement Amendments of 1988 (CLIA) as qualified to perform high complexity clinical laboratory testing. Electronically Signed By: Berta Young 08/19/24 [id number] Patient: Lan Reyes Age/Sex: 63/M [facility] [id number] MR#: [id number] Assessment & Plan Assessment & Plan (1) Elevated PSA: Code(s): R97.20 - Elevated prostate specific antigen [PSA] Category: Medical (2) Atypical small acinar proliferation of prostate: Code(s): N42.32 - Atypical small acinar proliferation of prostate Category: Medical Plan MR prostate, PSA in 6 months Orders: Orders AMB Urinalysis Automated 08/23/24 Z13.9 - Encounter for screening, unspecified Patient Instructions: The patient had an opportunity to ask questions regarding treatment plan. The patient expressed understanding and agreement with the above treatment plan. The patient is aware they should contact our office by phone for worsening of their current condition or the appearance of new symptoms. Compliance is encouraged with any medications and followup testing that is ordered. It is a privilege to be allowed the opportunity to participate in the urologic care of your patient. If you have any questions or concerns regarding treatment for the above conditions please do not hesitate to contact me. The office telephone contact is [phone]. This note is constructed in part using voice recognition software. While every effort has been made to ensure accuracy master barber errors may have been included. Yours sincerely, Allie Jaramillo MD Coding Level of Care Code Est Pt Level 4 (09821) Diagnoses Elevated PSA R97.20 Atypical small acinar proliferation of prostate N42.32
== END 2024-08-23 10:34 | disposition home or self-care (01) ==
PROVIDERS: PCP Family Medicine; Visit Provider Urology
DX: R97.20 Elevated prostate specific antigen [PSA] (principal); N42.32 Atypical small acinar proliferation of prostate
CPT/HCPCS: 99214

== ENCOUNTER → 2024-08-23 09:11 | Outpatient (BNVA) | payer OTHER, SELFPAY | PROVIDERS: PCP Family Medicine; Visit Provider Urology | DX: N42.32 Atypical small acinar proliferation of prostate (principal); R97.20 Elevated prostate specific antigen [PSA]; Z98.890 Other specified postprocedural states | CPT/HCPCS: 81003 ==

== ENCOUNTER 2024-12-24 13:57 | Outpatient (AMB) | payer OTHER, SELFPAY ==
--- NOTE | 2024-12-24 14:20 | A.OFFPC_ITS ---
Vital Signs 12/24/24 14:22 Height 5 ft 8 in Weight 190 lb 2 oz BMI 28.9 BP 101/52 L Blood Pressure Location Rt brachial Position Sitting Respiration 12 Pulse 74 Pulse Source Pulse Oximeter Temp 97.9 F Temp Source Oral Pulse Oximetry (%) 98 Oxygen Delivery Method Room Air Intake Visit Reasons: Afib/weak and exhausted Intake Note: Patient is scheduled for DM follow up and weakness Card Painter Required: No Allergies No Known Allergies Allergy (Verified 12/24/24 14:21) Medication List - Last Reconciled 12/24/24 by Himanshu Acevedo MD apixaban (Eliquis) 5 mg PO BID 90 days atorvastatin 40 mg PO BEDTIME 90 days empagliflozin (Jardiance) 10 mg PO DAILY 90 days enoxaparin (Lovenox) 40 mg (0.4 mL) subcut Q12H 5 days metoprolol succinate ER 150 mg (1.5 x 100 mg) PO DAILY 90 days sacubitril-valsartan 49-51 mg (Entresto) 1 tab PO BID 90 days sertraline 100 mg PO DAILY 90 days spironolactone 25 mg PO DAILY 90 days Tobacco use date assessed: 03/28/24 Dental Screening Dental Screen Date: 03/28/24 HPI Afib/weak and exhausted HPI Details 64 y/o male with hx of AFib presents tod ay with complaints of fatigue, weakness. Reports fatigue. Blood pressure today 101/52, 74p. He is on Entresto, metoprolol, spironolactone 25mg daily. He mentions he associates some of his fatigue in increase to his metoprolol. [facility] Medical History No pertinent past medical history Surgical History Status post biventricular cardiac pacemaker insertion H/O cardiac radiofrequency ablation Hx of colonoscopy Family History Father Cancer Mother Heart problem Social History Household Members: None Housing: House Alcohol intake: current Alcohol intake frequency: a few times a month Patient Tobacco Use Status: Never used Tobacco e-Cigarette/Vaping Use: Never Used Second Hand Smoke Exposure: No service: No Current occupational status: employed Current occupation: HVAC Current occupational exposures/hazards: No Cognitive needs: No Hearing needs: No Vision needs: No Questionnaire PHQ-9 Over the last 2 weeks, how often have you been bothered by any of the following problems? 1. Little interest or pleasure in doing things: several days 2. Feeling down, depressed, or hopeless: several days 3. Trouble falling or staying asleep, or sleeping too much: several days 4. Feeling tired or having little energy: more than half the days 5. Poor appetite or overeating: several days 6. Feeling bad about yourself - or that you are a failure or have let yourself or your family down: not at all 7. Trouble concentrating on things, such as reading the newspaper or watching television: not at all 8. Moving or speaking so slowly that other people could have noticed. Or the opposite - being so fidgety or restless that you have been moving around a lot more than usual: several days 9. Thoughts that you would be better off or of hurting yourself in some way: not at all Total score: 7 Source: Developed by Drs. Carlin Andrade, Priti Sigala, Lele Rivera and colleagues, with an educational sid from [employer]. Thrive Questionnaire Date Thrive assessed: 03/28/24 I am a: Patient What is your living situation today?: I have a steady place to live Within the past 12 months, did the food you bought not last and you didn't have the money to get more?: Never true Within the past 12 months, did you worry whether your food would run out before you got money to buy more?: Never true Do you have trouble paying for medicines?: No Do you have trouble getting transportation to medical appointments?: No Do you have trouble paying your heating and electricity bill?: No Do you have trouble taking care of your child, family member or friend?: No Do you have trouble with day-to-day activities such as bathing, preparing meals, shopping, managing finances, etc.?: No Are you currently unemployed and looking for a job?: No Are you interested in more education?: No Please select the resources that you would like help with: None Currently or been in a relationship where the following occur: No concerns reported THRIVE Score: 0 AUDIT C Alcohol Use Questionnaire (AUDIT-C) 1. How often do you have a drink containing alcohol?: 2-3 times a week 2. How many drinks containing alcohol do you have on a typical day when you are drinking?: 1 or 2 3. How often do you have six or more drinks on one occasion?: Never Total Score: 3 LISANDRO-7 AMB Questionnaire LISANDRO-7 Date LISANDRO - 7 assessed: 03/28/24 Feeling nervous, anxious, or on edge: 0 = Not at all Not being able to stop or control worryin = Not at all Worrying too much about different things: 0 = Not at all Trouble relaxin = Not at all Being so restless that it is hard to sit still: 0 = Not at all Becoming easily annoyed or irritable: 0 = Not at all Feeling afraid as if something awful might happen: 1 = Several days Total LISANDRO-7 score (0-4 normal; 5-9 mild; 10-14 moderate; 15-21 severe): 1 Source: Developed by Drs. Carlin Andrade, Priti Sigala, Lele Rivera and colleagues, with an educational sid from [employer]. Review of Systems Const Denies chills, Denies fatigue, Denies fever(s), Denies headache(s) and Denies weakness ENT Denies dizziness and Denies headache(s) Card Denies dyspnea Resp Denies cough, Denies dyspnea, Denies wheezing and Denies other (shortness of breath) Musc Denies numbness and Denies tingling Neuro Denies dizziness, Denies headache(s), Denies numbness, Denies tingling and Denies weakness Psych Denies anxiety and Denies depression Endo Denies fatigue Aller/Immun Denies wheezing Physical exam (Primary Care) Vital Signs: Last Vital Signs Temp 97.9 F 12/24/24 14:22 Pulse 74 12/24/24 14:22 Resp 12 12/24/24 14:22 BP 101/52 L 12/24/24 14:22 Pulse Ox 98 12/24/24 14:22 Oxygen Delivery Method Room Air 12/24/24 14:22 BMI result Body Mass Index 28.9 Tobacco/Smoking Status: Tobacco use Status Tobacco use date assessed 03/28/24 12/24/24 14:30 Patient Tobacco Use Status Never used Tobacco 12/24/24 14:30 e-Cigarette/Vaping Use Never Used 12/24/24 14:30 PHQ-9: PHQ-9 Score PHQ-9: Total score 7 12/24/24 14:36 Thrive Assessment: Date of Thrive Assessment Date Thrive assessed 03/28/24 12/24/24 14:30 Currently or been in a relationship where the following occur: No concerns reported Const General: well developed; No acute distress Nutritional Appearance: well nourished Orientation/consciousness: patient oriented x3 HENMT Head: Yes normocephalic and Yes atraumatic Eyes General: appearance normal, both eyes and all related structures Pupils: Equal, round and reactive pupils present EOM: EOMs intact bilaterally Resp Effort & Inspection: normal respiratory effort Auscultation: clear to auscultation bilaterally Cardio Rate: regular rate Rhythm: abnormal rhythm irregularly irregular Heart sounds: S1 normal heart sound present, S2 normal heart sound present, no gallops, no murmurs and no rubs Neuro General: patient oriented x3 and gait normal Cranial nerves: Yes Equal, round and reactive pupils present Psych Affect: normal affect Coding Level of Care Code Est Pt Level 4 (63988) Diagnoses Atrial fibrillation I48.91 Fatigue R53.83 Essential hypertension I10 Assessment & Plan Assessment & Plan (1) Atrial fibrillation: Code(s): I48.91 - Unspecified atrial fibrillation Category: Medical (2) Fatigue: Code(s): R53.83 - Other fatigue Category: Medical (3) Essential hypertension: Code(s): I10 - Essential (primary) hypertension Category: Medical Plan Complaints?of?fatigue?in?patient?with?history?of?coronary?artery?disease,?cardio myopathy?and?atrial?fibrillation. Blood?pressures?today?are?rather?low. He?is?taking?Entresto?and?also?on?metoprolol?and spironolactone. Heart?rate?71. He?mentions?that?he?does?associate?some?of?his?fatigue?with?increase?in?metoprol ol. EKG?today?shows?atrial?fibrillation?with?heart?rate?71?beats?per?minute,?low- voltage?QRS, no?ST-T-wave?changes. Will?check?labs?as?he?has?had?history?of?anemia so?checking?CBC?and?will?also?check?thyroid?and?BNP Will?check echocardiogram Patient?has?seen?Dr. Grant, cardiology?but?says?that?he?does?not?feel?they?have?been?following?him?closely. He?would?like?a?new?referral?so?I?will?send?him?to??[facility]. I?will?see?him?back?next?month?to?follow- up?lab?work,?echocardiogram?and?change?in?metoprolol. Orders: Orders Vitamin B12 and Folate Today E53.8 - Deficiency of other specified B group vitamins, I48.91 - Unspecified atrial fibrillation IRON PROFILE Today D64.9 - Anemia, unspecified Complete Blood Count Auto Diff Today D64.9 - Anemia, unspecified, Z00.00 - Encounter for general adult medical examination without abnormal findings Comprehensive Met. Panel Today I48.91 - Unspecified atrial fibrillation TSH reflex Free T4 Today I48.91 - Unspecified atrial fibrillation, Z00.00 - Encounter for general adult medical examination without abnormal findings B Type Natriuretic Peptide Today I48.91 - Unspecified atrial fibrillation, I50.9 - Heart failure, unspecified CA echo transthoracic complete Today I48.91 - Unspecified atrial fibrillation, R53.83 - Other fatigue Referrals Cardiology Referral I25.10 - Atherosclerotic heart disease of [place] coronary artery without angina pectoris, I42.9 - Cardiomyopathy, unspecified, I48.91 - Unspecified atrial fibrillation Medications: Changed From metoprolol succinate ER 150 mg (1.5 x 100 mg) PO DAILY 90 days 135 tabs 3RF To metoprolol succinate ER 100 mg PO DAILY 90 days 90 tabs 3RF
[2024-12-24 14:22] VITALS: BP 101/52; PULSE 74; RESP 12; TEMP 36.6; O2SAT 98; BMI 28.9
== END 2024-12-24 15:03 | disposition home or self-care (01) ==
LOC: HO.HMCFM 13:58
PROVIDERS: PCP Family Medicine; Visit Provider Family Medicine
DX: I48.91 Unspecified atrial fibrillation (principal); R53.83 Other fatigue; I10 Essential (primary) hypertension

== ENCOUNTER → 2024-12-24 13:57 | Outpatient (BNVA) | payer OTHER, SELFPAY | PROVIDERS: PCP Family Medicine; Visit Provider Family Medicine ==

== ENCOUNTER 2024-12-24 15:20 | Outpatient (REF) | payer OTHER, SELFPAY ==
[2024-12-24 18:28] LABS: MANUAL DIFF FLAG NO
[2024-12-24 18:40] LABS: Basophils Absolute Auto 0.1 X10*3/uL (0.0-0.2); Basophils Percent Auto 0.9 % (0-2); Eosinophils Absolute Auto 0.2 X10*3/uL (0.0-0.4); Hematocrit 43.9 % (42.0-52.0); Hemoglobin 14.1 g/dl (14.0-18.0); Imm Gran Abs Auto 0.02 X10*3/uL (0.00-0.03); Imm Gran Pct Auto 0.3 % (0.0-0.4); Lymphocytes Absolute Auto 1.9 X10*3/uL (1.2-4.9); Mean Corpuscular HGB Conc 32.1 g/dl (31.0-36.0); Mean Corpuscular Hemoglobin 30.4 pg (27.0-33.0); Mean Corpuscular Volume 94.6 fL (80.0-98.0); Mean Platelet Volume 10.5 fL (9.4-12.4); Monocytes Absolute Auto 0.6 X10*3/uL (0.1-1.2); Monocytes Percent Auto 8.9 % (2-11); Neutrophils Absolute Auto 3.9 x10*3/uL (2.0-8.3); Neutrophils Percent Auto 57.9 % (45-73); Platelet Count 243 X10*3/uL (160-400); Red Blood Count 4.64 X10*6/uL (4.60-5.80); White Blood Count 6.7 X10*3/uL (4.8-10.8)
[2024-12-24 19:08] LABS: B Type Natriuretic Peptide 95 pg/mL (<100)
[2024-12-24 19:25] LABS: Alanine Aminotransferase 26 U/L (0-40); Albumin Level 4.3 g/dL (3.5-5.0); Alkaline Phosphatase 64 U/L (39-117); Anion Gap 11 (12-20); Aspartate Amino Transferase 26 U/L (5-37); Bilirubin Total 0.8 mg/dL (0.0-1.0); Blood Urea Nitrogen 22 mg/dL (9-16); Calcium 9.6 mg/dL (8.4-10.2); Carbon Dioxide 26 mmol/L (22-29); Chloride 107 mmol/L (96-108); Estimated Glomerular Filt Rate > 60; Glucose Random 84 mg/dL (60-115); Iron 98 mcg/dL (45-160); Percent Iron Saturation 32 % (15-50); Potassium 4.5 mmol/L (3.3-5.1); Sodium 139 mmol/L (135-145); Total Iron Binding Capacity 306 mcg/dL (228-428); Unsaturated Iron Binding 208 ug/dL
[2024-12-24 19:42] LABS: TSH reflex Free T4 2.35 uIU/mL (0.32-4.0)
[2024-12-24 19:54] LABS: Folate 15.4 ng/mL (> or = 4.0); Vitamin B12 609 pg/mL (200-900)
== END 2024-12-24 15:21 | disposition home or self-care (01) ==
LOC: HO.WFDLDS 15:20
PROVIDERS: Visit Provider Family Medicine
DX: Z00.00 Encounter for general adult medical examination without abnormal findings (principal); I50.9 Heart failure, unspecified; D64.9 Anemia, unspecified; I48.91 Unspecified atrial fibrillation; E53.8 Deficiency of other specified B group vitamins
CPT/HCPCS: 36415; 80053; 82607; 82746; 83540; 83880; 84443; 85025

== ENCOUNTER 2025-01-22 15:40 | Outpatient (AMB) | payer OTHER, SELFPAY ==
--- NOTE | 2025-01-22 15:42 | MHC.PC.OV ---
Vital Signs 01/22/25 15:47 Height 5 ft 8 in Weight 191 lb BMI 29.0 BP 99/55 L Blood Pressure Location Rt brachial Position Sitting Respiration 16 Pulse 74 Pulse Source Pulse Oximeter Temp 97.8 F Temp Source Oral Pulse Oximetry (%) 98 Oxygen Delivery Method Room Air Intake Visit Reasons: f/u fatigue/afib/discuss colorectal cx screening Intake Note: patient here for follow up on fatigue, afib, and discuss colorectal cx screening Central Supply Supervisor Required: No Allergies No Known Allergies Allergy (Verified 01/22/25 15:45) Medication List - Last Reconciled 01/22/25 by Himanshu Acevedo MD apixaban (Eliquis) 5 mg PO BID 90 days atorvastatin 40 mg PO BEDTIME 90 days empagliflozin (Jardiance) 10 mg PO DAILY 90 days enoxaparin (Lovenox) 40 mg (0.4 mL) subcut Q12H 5 days metoprolol succinate ER 100 mg PO DAILY 90 days multivitamin 1 tab PO DAILY sacubitril-valsartan 49-51 mg (Entresto) 1 tab PO BID 90 days sertraline 100 mg PO DAILY 90 days spironolactone 25 mg PO DAILY 90 days Tobacco use date assessed: 01/22/25 Fall risk assessment: No Falls in past year Last assessed Fall Risk: 01/22/25 Dental Screening Dental Screen Date: 01/22/25 Did you have a dental visit in the last 12 months?: Yes Did you have a dental problem in the last 6 months where you did not have access to dental care?: No Was dental information given to patient?: Patient has dentist HPI f/u fatigue/afib/discuss colorectal cx screening HPI Details 64 y/o male presents to f/u fatigue, chronic conditions. BP had been low. He associates some of his fatigue with increase in metoprolol. Had decreased metoprolol from 150mg to 100mg daily. Had referred him to [facility] Cardiology. Last EKG showed AFib with heart rate 71 bpm, low voltage QRS, no ST-T wave changes. His labs look fine. Blood pressure today 99/55, 74p. He is on spironolactone 25mg daily, Entresto 1 tab b.i.d., metoprolol 100mg daily. He has an appt. with Cardiology in about 2 days. He notes ongoign daytime fatigue. HPI Comments History of Present Illness Details Documentation assistance for Himanshu Acevedo MD, was provided by Elmer Patton,? Education Department Registrar on 01/22/2025 at 4:11 PM EST. I, Dr. Acevedo, have read, observed, and verified documentation. ?? [facility] Medical History No pertinent past medical history Surgical History Status post biventricular cardiac pacemaker insertion H/O cardiac radiofrequency ablation Hx of colonoscopy Family History Father Cancer Mother Heart problem Social History Household Members: None Housing: House Alcohol intake: current Alcohol intake frequency: a few times a month Patient Tobacco Use Status: Never used Tobacco e-Cigarette/Vaping Use: Never Used Second Hand Smoke Exposure: No service: No Current occupational status: employed Current occupation: HVAC Current occupational exposures/hazards: No Cognitive needs: No Hearing needs: No Vision needs: No Questionnaire Thrive Questionnaire Date Thrive assessed: 03/28/24 LISANDRO-7 AMB Questionnaire LISANDRO-7 Date LISANDRO - 7 assessed: 03/28/24 Source: Developed by Drs. Carlin Andrade, Priti Sigala, Lele Rivera and colleagues, with an educational sid from [employer]. Review of Systems Const Denies chills, Reports fatigue, Denies fever(s), Denies headache(s) and Denies weakness ENT Denies dizziness and Denies headache(s) Card Denies dyspnea Resp Denies cough, Denies dyspnea, Denies wheezing and Denies other (shortness of breath) Musc Denies numbness and Denies tingling Neuro Denies dizziness, Denies headache(s), Denies numbness, Denies tingling and Denies weakness Psych Denies anxiety and Denies depression Endo Reports fatigue Aller/Immun Denies wheezing Physical exam (Primary Care) Vital Signs: Last Vital Signs Temp 97.8 F 01/22/25 15:47 Pulse 74 01/22/25 15:47 Resp 16 01/22/25 15:47 BP 99/55 L 01/22/25 15:47 Pulse Ox 98 01/22/25 15:47 Oxygen Delivery Method Room Air 01/22/25 15:47 BMI result Body Mass Index 29.0 Tobacco/Smoking Status: Tobacco use Status Tobacco use date assessed 01/22/25 01/22/25 15:48 Patient Tobacco Use Status Never used Tobacco 01/22/25 15:48 e-Cigarette/Vaping Use Never Used 01/22/25 15:48 Thrive Assessment: Date of Thrive Assessment Date Thrive assessed 03/28/24 01/22/25 15:48 Const General: well developed; No acute distress Nutritional Appearance: well nourished Orientation/consciousness: patient oriented x3 HENMT Head: Yes normocephalic and Yes atraumatic Eyes General: appearance normal, both eyes and all related structures Pupils: Equal, round and reactive pupils present EOM: EOMs intact bilaterally Resp Effort & Inspection: normal respiratory effort Auscultation: clear to auscultation bilaterally Cardio Rate: regular rate Rhythm: regular rhythm Heart sounds: S1 normal heart sound present, S2 normal heart sound present, no gallops, no murmurs and no rubs Neuro General: patient oriented x3 and gait normal Cranial nerves: Yes Equal, round and reactive pupils present Psych Affect: normal affect Coding Level of Care Code Est Pt Level 4 (84493) Diagnoses Essential hypertension I10 Atrial fibrillation I48.91 Fatigue R53.83 Colon cancer screening Z12.11 Erectile dysfunction N52.9 Assessment & Plan Assessment & Plan (1) Essential hypertension: Code(s): I10 - Essential (primary) hypertension Category: Medical Plan: Blood?pressure?is?quite?low?despite?decreasing?metoprolol?at?last?visit. He?has?atrial?fibrillation. Blood?pressure?99/55.??Heart?rate?is?within?normal?range. Will?decrease?Entresto?and?continue?metoprolol?as?prescribed. (2) Atrial fibrillation: Code(s): I48.91 - Unspecified atrial fibrillation Category: Medical Plan: He?is?on?Eliquis?and?metoprolol. Rate?controlled. Referred to?cardiology?as?he?has?complaints?of?fatigue I?had?ordered?an?echocardiogram.??This?is?scheduled. Continue?current?medication?regimen (3) Fatigue: Code(s): R53.83 - Other fatigue Category: Medical Plan: Unclear?cause. Lab?work?is?unremarkable. Awaiting?echocardiogram?and?I?have?referred?him?to?Cardiology?as?well. Denies?symptoms?of?sleep?apnea.??He?had?a?sleep?study?years?ago?which?was?negative. Discussed?with?patient?if?we?can?find?no?underlying?cause?you?should?repeat?this. (4) Colon cancer screening: Code(s): Z12.11 - Encounter for screening for malignant neoplasm of colon Category: Medical Plan: Patient?says?he?had?a?colonoscopy?several?years?back. Medical?assistant fitness manager?called all?specialists?in?the?area?and?could?find?no?records. I?have?referred?him?to?Gastroenterology. (5) Erectile dysfunction: Code(s): N52.9 - Male erectile dysfunction, unspecified Category: Medical Plan: Complaints?of?erectile?dysfunction. Blood?pressure?is?quite?low?and?I?have?decreased?his?medication?again. He?is?also?on?a?beta-elisabeth?which?can?be?an?underlying?cause?but?he?is?currently?on?this?for?rate?control?and?blood?pressure?control. Sildenafil?is?effective. Continue?sildenafil. Easing?up?on?blood?pressure?medication?as?his?BP?is?rather?low. Medications: New sacubitril-valsartan 24-26 mg (Entresto) 1 tab PO BID 90 days 180 tabs 3RF Discontinued sacubitril-valsartan 49-51 mg (Entresto) Discontinued Reason: Duplicate 1 tab PO BID 90 days 180 tabs 3RF
[2025-01-22 15:47] VITALS: BP 99/55; PULSE 74; RESP 16; TEMP 36.6; O2SAT 98; BMI 29.0
== END 2025-01-22 16:28 | disposition home or self-care (01) ==
LOC: HO.HMCFM 15:40
PROVIDERS: PCP Family Medicine; Visit Provider Family Medicine
DX: I10 Essential (primary) hypertension (principal); I48.91 Unspecified atrial fibrillation; R53.83 Other fatigue; Z12.11 Encounter for screening for malignant neoplasm of colon; N52.9 Male erectile dysfunction, unspecified

== ENCOUNTER → 2025-01-22 15:40 | Outpatient (BNVA) | payer OTHER, SELFPAY | PROVIDERS: PCP Family Medicine; Visit Provider Family Medicine ==

== ENCOUNTER → 2025-01-24 10:48 | Outpatient (REF) | payer OTHER, SELFPAY ==
--- NOTE | 2025-01-24 11:14 | CA_ITS ---
Transthoracic Echocardiogram Patient (Last, First, Middle): Lan Reyes, Gender: Male Date of : 1960 Age: 64 Procedure Date: 01/24/2025 Procedure Type: Transthoracic Echocardiogram Location: OP Height: 175.26 cm Weight: 83.92 kg BSA: 2.00 m2 Heart Rate: bpm BP: 98 / 56 mmHg Director Of Distribution: TO Referring MD: Himanshu Acevedo MD Symptoms: I48.91 - Unspecified atrial fibrillation Study Quality: Fair/Contrast Conclusions: - Normal left ventricular cavity size. There is normal left ventricular wall thickness. The left ventricular systolic function is borderline reduced. The visually estimated ejection fraction is between 45-50%. - Normal right ventricular cavity size and systolic function. There is a pacemaker wire seen in the right ventricle. - The left atrium is moderately dilated. The right atrium is moderately dilated. Findings Procedure Information Contrast agent, definity, is being given per protocol without apparent complications. Left Ventricle Normal left ventricular cavity size. There is normal left ventricular wall thickness. The left ventricular systolic function is borderline reduced. The visually estimated ejection fraction is between 45-50%. There is no evidence of regional wall motion abnormalities. Diastolic function is indeterminate on the basis of available data. Right Ventricle Normal right ventricular cavity size and systolic function. There is a pacemaker wire seen in the right ventricle. Atria The left atrium is moderately dilated. The right atrium is moderately dilated. Aortic Valve Normal aortic valve structure and function. There is no aortic valve stenosis. There is no aortic valve regurgitation. Mitral Valve The mitral valve appears normal. There is trace mitral valve regurgitation. There is no mitral valve stenosis. Pulmonic Valve The pulmonic valve is likely normal. Tricuspid Valve Normal tricuspid valve structure. There is trace tricuspid valve regurgitation. Normal right atrial pressure. There is no evidence of pulmonary hypertension. Great Vessels All visible segments of the aorta are normal in size. Venous The inferior vena cava is normal in size and collapses greater than 50% with inspiration. Pericardium/Pleural There is no evidence of pericardial effusion. Measurements 2D Linear Measurements IVSd: 0.77 0.6-0.9/0.6-1.0 cm LVIDd: 5.39 3.9-5.3/4.2-5.9 cm LVIDd Index: 2.70 2.4-3.2/2.2-3.1 cm/m2 LVIDs: 4.08 2.0-3.6 cm LVPWd: 0.77 0.7-1.1 cm LA Diam: 4.10 2.7-3.8/3.0-4.0 cm LAIDs Index: 2.05 1.5-2.3 cm/m2 LV Mass: 184.02 67-162/88-224 g LV Mass Index: 92.01 43-95/49-115 g/m2 LVOT Diam: 2.40 3.0+(-)1.3 cm 2D Systolic Function EF 4C: 55.20 >55% EF 2C: 42.20 >55% EF BiP: 51.50 >55% Mitral Valve MV Pk E: 0.47 MV Decel Time: 181.00 E'Lateral: 10.80 E'Medial: 8.01 E/E' Med: 5.90 E/E' Lat: 4.40 PHT: 53.00 MVA PHT: 4.15 Decel Inyo: 2.73 Aortic Valve AoV Pk Saman: 0.74 AoV Pk Grad: 2.00 LVOT LVOT Pk Saman: 0.54 LVOT Mn Saman: 0.36 LVOT VTI: 0.10 LVOT Pk Grad: 1.00 LVOT Mn Grad: 1.00 LVOT Diam: 2.40 LVOT Area: 4.52 Diastolic Function MV Pk E: 0.47 E'Medial: 8.01 E/E' Med: 5.90 E' Laterial: 10.80 E/E' Lat: 4.40 Right Ventricle TAPSE (mm): 19.80 TVS' Saman: 9.90 Tricuspid Valve TR Pk Saman: 1.99 TR Pk Grad: 16.00 RA Press: 3.00 RVSP: 19.00 Great Vessels Aorta Sinus of Valsalva: 3.61 2.0-3.5 cm Ao Asc: 3.00 2.1-3.4 cm Updated in Other Vendor System with Status of Final Angel Jade MD electronically signed on 01/26/2025 7:07:07 PM with status of Final
== END ==
LOC: HO.CARD 10:48
PROVIDERS: PCP Family Medicine; Visit Provider Family Medicine
DX: I48.91 Unspecified atrial fibrillation (principal); R53.83 Other fatigue
CPT/HCPCS: 93306; Q9957

== ENCOUNTER → 2025-01-24 11:14 | Outpatient (BNV) | payer OTHER, SELFPAY | PROVIDERS: PCP Family Medicine; Visit Provider Internal Medicine Cardiovascular Disease | DX: I34.0 Nonrheumatic mitral (valve) insufficiency (principal); I36.1 Nonrheumatic tricuspid (valve) insufficiency; I51.7 Cardiomegaly; Z95.0 Presence of cardiac pacemaker | CPT/HCPCS: 93306 ==

== ENCOUNTER → 2025-03-27 09:02 | Outpatient (BNV) | payer OTHER, SELFPAY | PROVIDERS: PCP Family Medicine; Visit Provider Radiology Diagnostic Radiology | DX: R97.20 Elevated prostate specific antigen [PSA] (principal) | CPT/HCPCS: 72197 ==

== ENCOUNTER 2025-03-27 09:06 | Outpatient (REF) | payer OTHER, SELFPAY ==
--- NOTE | ~2025-03-27 | MR_ITS ---
EXAMINATION: MR PROSTATE WITHOUT THEN WITH IV CONTRAST HISTORY: R97.20 - Elevated prostate specific antigen [PSA] TECHNIQUE: 1.5T body coil survey of the pelvis was performed. Phase array coil imaging of the prostate was performed in multiplanar high resolution axial, coronal, sagittal fast spin echo T2 and axial T1 weighted imaging sequences. Axial diffusion imaging at intermediate and high field performed with ADC mapping. Next, mL Gadavist was given by intravenous infusion, and dynamic axial imaging performed. COMPARISON: There are no prior studies available for comparison. CLINICAL DATA: Most recent PSA: 4.97 ng/mL on 04/09/2024. PSA Density: 0.063 ng/mL squared Prostate Biopsy: Prior biopsy on 08/16/2024 demonstrated atypical small acinar proliferation, cannot exclude adenocarcinoma. FINDINGS: Prostate size: 6.4 x 5.5 x 4.3 cm. Calculated prostate volume is 78.7 mL. Hemorrhage: None. Transitional Zone: There is moderate heterogeneous nodular hypertrophy of the transitional zone. Peripheral Zone: There is diffuse mild decreased T2 signal intensity within the peripheral zone, which can be seen in the setting of prostatitis of scarring. No discrete focus of abnormal signal intensity or diffusion restriction is identified. Seminal Vesicles/Ejaculatory Ducts: Symmetric and normal in signal and caliber. Pelvic Lymph Nodes: No obturator or internal iliac lymph nodes meeting size criteria for adenopathy. Marrow Signal: Normal marrow signal and enhancement without focal lesion identified. MR/MR Prostate wo/w con IMPRESSION: No discrete focus of abnormal signal intensity is identified to suggest clinically significant prostate carcinoma. PI-RADS 2: Low (clinically significant cancer is unlikely to be present) PI-RADS Assessment Categories PI-RADS 1: Very low (clinically significant cancer is highly unlikely to be present) PI-RADS 2: Low (clinically significant cancer is unlikely to be present) PI-RADS 3: Intermediate (the presence of clinically significant cancer is equivocal) PI-RADS 4: High (clinically significant cancer is likely to be present) PI-RADS 5: Very high (clinically significant cancer is highly likely to be present) [employer]. MR Prostate Imaging Reporting and Data System version 2.1. [email or web address] Electronically signed by: Carlin Casas MD 03/27/2025 11:07 AM EDT
[2025-03-27] MEDS: gadobutroL 10 ML VIAL IVPUSH (10:31)
== END 2025-03-27 09:07 | disposition home or self-care (01) ==
LOC: HO.MRI 09:06
PROVIDERS: PCP Family Medicine; Visit Provider Urology
DX: R97.20 Elevated prostate specific antigen [PSA] (principal); N42.32 Atypical small acinar proliferation of prostate
CPT/HCPCS: 72197; A9585